=== PATIENT | female | born 1960 | race Caucasian/White ===

== ENCOUNTER 2016-07-31 14:37 | Inpatient (IN) | payer MEDICARE, MEDICAID ==
[2016-07-31] VITALS (9 sets, daily range): BP systolic 98–138; BP diastolic 60–88
[~2016-07-31] VITALS: Ht 175 cm; Wt 114.5 kg
--- NOTE | ~2016-07-31 | PR ---
[place], [place] PROGRESS NOTE NAME: [id number] UNIT #: [id number] ROOM: 522 DOCTOR: PATRICIA SOLANO MD,MARTY BIRTHDATE: [birth year] DOS: 08/06/2016 SUBJECTIVE: She had been noted to gradual continued reduction and improvement in the respiratory complaints of cough. The wheezing has been improving. Shortness of breath has been also noted gradually reduced. She denies any chest pain or any abdominal pain. OBJECTIVE: VITAL SIGNS: For the patient, which has been recorded shows a normal temperature, respiratory rate 20, heart rate 66, blood pressure 134/88 this morning. HEENT: Examination shows chronic moderate obesity. NECK: Supple. CARDIOVASCULAR: S1, S2 audible. LUNGS: Rbut-lv-dwolwpxi expiratory wheezing, which has noted further decrease from previous examination. ABDOMEN: Soft, nontender. LABORATORY DATA: BMP today: BUN 32, creatinine 1.07. Chest x-ray of the patient on 08/06/2016 for the patient was noted with resolving infiltration in the right lung. IMPRESSION: 1. Improving acute pneumonia progressively with improving acute exacerbation of chronic obstructive pulmonary disease. 2. Chronic obesity as well. PLAN OF TREATMENT: Continuation of current plan of treatment for another 24 hours. Possible home discharge might be considered on oral medication depends on further improvement in the symptoms. Other supportive therapy, plan of management continue. Usual care. MARTY GOMEZ MD CM:PNTRANS [phone] MARTY SOLANO MD 08/07/16 0059 interface
--- NOTE | ~2016-07-31 | PROC NOTE ---
[place], [place] PROCEDURE NOTE NAME: SANDRA CHRISTOPHER UNIT #: [id number] ROOM: 522 DOCTOR: PATRICIA SOLANO MD,MARTY BIRTHDATE: [birth year] DOS: 08/03/2016 BRONCHOSCOPY NOTE PREOPERATIVE DIAGNOSES: Severe nonproductive cough for this patient with wheezing and acute bacterial pneumonia. POSTOPERATIVE DIAGNOSES: Ongoing acute pneumonia was noted in the right lower lobe endobronchial tree with multiple large plugs in the mucus, cleared off endobronchial tree bilaterally. PROCEDURE DESCRIPTION: Informed consent obtained for the patient. The patient brought to the OR, placed in a supine position. Conscious sedation administered by the Anesthesia Department. After achieving appropriate sedation, airway introduced into the mouth. Bronchoscope advanced through the airway into the laryngeal area. The epiglottis and vocal cords were seen. Bronchoscope advanced to the vocal cords into tracheal lumen, which shows very thick mucus secretions present in the tracheal lumen suctioned out bhargavi level. Bhargavi was noted at that time. Right upper, right middle, right lower, left upper, lower lobe, and lingular bronchi were all examined. Thick plugs of mucus are removed from the endobronchial tree. Purulent secretion present in the right lower lobe endobronchial tree as well in the basilar subsegments. BAL specimen of the right lower lobe was also noted. Procedure well tolerated by the patient without any complications. Postoperative findings will be discussed with the patient once the patient recovered the effects of acute sedation. MARTY GOMEZ MD CM:PROCNOTE:PROCEDURE NOTE [id number] MARTY SOLANO MD
--- NOTE | ~2016-07-31 | PR ---
[place], [place] PROGRESS NOTE NAME: SANDRA CHRISTOPHER UNIT #: [id number] ROOM: 522 DOCTOR: MARTY MILLER MD BIRTHDATE: [birth year] DOS: 08/03/2016 PULMONARY PROGRESS NOTE SUBJECTIVE: She was seen and examined on 08/03/2016. She was still noted symptoms of coughing, currently noted n.p.o. for bronchoscopy. The coughing has been noted nonproductive as previously with partial improvement as the patient has been using the Robitussin with codeine. She denies symptoms of chest pain. The wheezing was still described. She was continued on high dose intravenous corticosteroids with bronchodilators administration every 4 hours. OBJECTIVE: VITAL SIGNS: For the patient which have been recorded showed the temperature of the patient recorded as normal. The respiratory rate of the patient recorded as 16, heart rate 66, blood pressure 187/81. The pulse oxygen saturation for the patient recorded on 2 L nasal cannula 97% saturation. HEENT: On examination, head was atraumatic. Eyes nonicterus. NECK: Supple. CARDIOVASCULAR SYSTEM: S1, S2 audible. LUNGS: Noted with persistent moderate expiratory wheezing. There were no crackles. ABDOMEN: Soft, nontender. LABORATORY DATA: The BMP of the patient this morning, BUN 33, creatinine 1.43. Glucose 118. Remaining electrolytes were normal. IMPRESSION: 1. The patient who has been currently noted with ongoing acute exacerbation of bronchial asthma with acute bacterial pneumonia as well. 2. Chronic anticoagulation. 3. Severe nonproductive cough with wheezing, which remains persistent not resolving with current maximum medical therapy. 4. History of hypothyroidism and chronic obesity. 5. Atrial fibrillation, currently noted with controlled rate. PLAN OF TREATMENT: Continuation of the current plan of management as in progress. Proceed with the bronchoscopy. Any modification in the treatment if necessary will be done after bronchoscopy. Continue other usual care and plan of management. [place], [place] PROGRESS NOTE NAME: SANDRA CHRISTOPHER UNIT #: [id number] ROOM: 522 DOCTOR: MARTY MILLER MD BIRTHDATE: [birth year] MARTY GOMEZ MD CM:PNTRANS [id number] MARTY SOLANO MD 08/04/16 0114 interface
--- NOTE | ~2016-07-31 | CON ---
[place], [place] REPORT OF CONSULTATION [id number] UNIT #: [id number] ROOM: [place] [address] DOCTOR: RICKY GARZA MD BIRTHDATE: [birth year] DOS: 08/01/2016 REASON FOR CONSULTATION: Atrial fibrillation with rapid ventricular response. HISTORY OF PRESENT ILLNESS: Uma Christopher is a 56-year-old woman who has a long history of hypocalcemia. This apparently began after a thyroidectomy around 2011. Apparently, her parathyroids were also sacrificed in the surgery. She has had several episodes of hypocalcemia and is on calcitriol and Tums. The patient also has a history of palpitations and rapid heartbeat. She has been followed by Dr. Duffy at the [facility] in [place]. A loop recorder was placed about 3-4 years ago and did demonstrate atrial fibrillation. She is on Eliquis for stroke prophylaxis and is on propafenone to try to suppress her atrial fibrillation. She tells me that Dr. Duffy interrogated her loop recorder recently and found that she was in atrial fibrillation just under half the time. She presents to the hospital now because of worsening dyspnea and cough. She was treated as an outpatient for bronchitis, but did not improve. Her symptoms became worse, and therefore, she came back to the Emergency Room and was admitted. She was found to be in atrial fibrillation with rapid ventricular response in addition to which her chest x-ray now showed a right lower lobe pneumonia. She was also hypocalcemic. She was admitted to the Intensive Care Unit to treat these three issues. Overnight, she was placed on a diltiazem drip and converted back to sinus rhythm. She is now in sinus at a rate of 91. PAST MEDICAL HISTORY: Includes: 1. Hypothyroidism secondary to thyroid resection in the early 1999s. 2. 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 3. Essential hypertension. 4. Asthma. 5. Paroxysmal atrial fibrillation, first documented about 3-4 years ago. The patient is anticoagulated with Eliquis for stroke prophylaxis and is on propafenone for atrial fibrillation suppression. She reports that she is in atrial fibrillation just under half the time. 6. Chronic renal insufficiency. 7. History of section. 8. History of placement of a loop recorder subcutaneously. MEDICATIONS PRIOR TO ADMISSION: Albuterol by inhaler t.i.d., Symbicort 2 puffs b.i.d., alprazolam 0.5 mg b.i.d. p.r.n., apixaban 5 mg b.i.d., calcitriol 0.25 mcg 2 capsules daily, calcium carbonate 1000 mg t.i.d., diltiazem CD 240 mg daily, hydrochlorothiazide 12.5 mg daily, levothyroxine 200 mcg daily, metoprolol 50 mg b.i.d., Singulair 10 mg daily, Mirapex 0.75 mg at bedtime, Mysoline 50 mg at bedtime, propafenone 325 mg t.i.d. and Carafate 1 gram t.i.d. ALLERGIES: The patient lists ALLERGIES TO SULFA DRUGS AND PHENOBARBITAL. REVIEW OF SYSTEMS: The patient denies diplopia, loss of vision or focal [place], [place] REPORT OF CONSULTATION NAME: UMA CHRISTOPHER UNIT #: [id number] ROOM: [place] [address] DOCTOR: RICKY GARZA MD BIRTHDATE: [birth year] weakness. She denies any history of stroke. She denies nausea or vomiting. She denies fevers, chills, sweats or recent weight change. She denies orthopnea or PND. She does have asthma. She does have cough. She is dyspneic. She denies nausea or vomiting. She denies any weight change. She does have intermittent palpitations, but no syncope. She denies focal weakness. She denies bleeding from any site and denies bleeding from bowels or bladder. She denies hemoptysis or hematemesis. She denies any abdominal pain. She denies any dysuria. She denies peripheral edema. She denies swollen legs. The remainder of the review of systems is negative except as noted above. SOCIAL HISTORY: The patient is and lives with her . She does not smoke. She does not consume alcohol. PHYSICAL EXAMINATION: GENERAL: The patient is an overweight white female who is awake, alert, and oriented. VITAL SIGNS: Pulse is 90 and regular, blood pressure is 128/70. She is afebrile. She weighs 106 kilograms with a body mass index of 34.6. HEENT: Normocephalic, atraumatic. Extraocular muscles are intact. Sclerae are clear. Pupils are equal, round, and reactive to light. The oral mucosa is moist. Tongue is midline. NECK: Supple. She has no jugular distention. Carotids are full. I heard no bruits. She had no neck or supraclavicular masses. Respirations are unlabored. CHEST: Markedly decreased breath sounds bilaterally with marked expiratory prolongation and scattered wheezes with few crackles at the right base as well. LUNGS: Respirations are somewhat labored. She does have a persistent cough. CARDIOVASCULAR: Her heart has a regular rhythm. She has a fourth heart sound, but no third heart sound or murmur. The PMI is not displaced. She has no precordial heave, lift or thrill. ABDOMEN: Soft and normally active without masses, organomegaly or bruits. EXTREMITIES: Showed no edema. Peripheral pulses are easily palpated bilaterally. LABORATORY DATA: Her electrocardiogram on admission did show atrial fibrillation with a rapid ventricular response. She is now in sinus rhythm. IMPRESSIONS: 1. Hypocalcemia due to hypoparathyroidism (iatrogenic). 2. Iatrogenic hypothyroidism after thyroidectomy. 3. Paroxysmal atrial fibrillation documented about 3-4 years ago. The patient is on propafenone with only partial success. 4. Pneumonia. PLAN: As long as the patient is being treated for pneumonia, it is likely that she will have problems with recurrent atrial fibrillation. The work of breathing, bronchodilators, etc. are very likely to make her arrhythmias worse. For now, we will continue her Eliquis for stroke prophylaxis and propafenone for rhythm control. In the future, she may be a candidate for other antiarrhythmic medications or possibly even ablation, but I will leave that to her primary [place], [place] REPORT OF CONSULTATION NAME: UMA CHRISTOPHER UNIT #: [id number] ROOM: [place] [address] DOCTOR: RICKY GARZA MD BIRTHDATE: 62 accounting specialist, Dr. Duffy, at the [facility]. We will follow her with her other physicians and we thank the hospitalist for asking our advice regarding her care. RICKY GARZA MD CM:CONSTR:REPORT OF CONSULTATION 1625 08/02/16 0826 interface
--- NOTE | ~2016-07-31 | PR ---
[place], [place] PROGRESS NOTE NAME: SANDRA CHRISTOPHER UNIT #: [id number] ROOM: 522 DOCTOR: MARTY MILLER MD BIRTHDATE: [birth year] DOS: 08/05/2016 PULMONARY FOLLOWUP NOTE SUBJECTIVE: She has been noted reduction in symptoms of cough and shortness of breath. The patient's symptoms have been noted gradual reduction. Denies symptoms of chest pain or any abdominal pain. The patient has been also noted with reduction of the overall generalized debility. OBJECTIVE: VITAL SIGNS: Showed normal temperature, respiratory rate 20, heart rate 66, blood pressure 138/92. Pulse oxygen saturation of the patient on ____ 1.5 L nasal cannula ____ saturation. HEENT: Showed no acute change. NECK: Supple. CARDIOVASCULAR: S1, S2 is audible. LUNGS: The patient was noted without any crackles. Moderate decreased breath sounds with reduction of wheezing noted, still noted mild to moderately. ABDOMEN: Soft, nontender. Bowel sounds present. LABORATORY DATA: Culture of bronchial washings showed normal amos. The renal function panel BUN 33, creatinine 1.28. Remaining electrolytes were normal. IMPRESSION: 1. The patient with gradual reduction and resolution of the acute respiratory failure with resolving acute bacterial pneumonia, slowly. 2. Overall debility. 3. Muscle deconditioning. PLAN OF TREATMENT: Obtain a chest x-ray of the patient in the morning. The patient might be considered for treatment with intravenous antibiotics and corticosteroids. The patient for home discharge in the morning. In the meantime, continue the patient on current other therapy plan and management. Supportive plan of care. Obtain the chest x-ray of the patient in the morning as well for the assessment of the pneumonia progression. Other treatment plan for this patient as in progress. Reduce the dose of Solu-Medrol for the patient to b.i.d. dosing. [place], [place] PROGRESS NOTE NAME: SANDRA CHRISTOPHER UNIT #: [id number] ROOM: 522 DOCTOR: MARTY MILLER MD BIRTHDATE: [birth year] MARTY GOMEZ MD CM:PNTRANS [id number] MARTY SOLANO MD 08/06/16 0414 interface
--- NOTE | ~2016-07-31 | CON ---
[place], [place] REPORT OF CONSULTATION NAME: SANDRA CHRISTOPHER [facility] #: [id number] UNIT #: [id number] ROOM: 522 DOCTOR: MARTY MILLER MD BIRTHDATE: [birth year] DOS: 08/02/2016 PULMONARY CONSULTATION EVALUATION MANAGEMENT CONSULTATION REQUESTED BY: Hospitalist services. REASON FOR CONSULTATION: Assess the patient for ongoing acute pneumonia with severe cough and other symptoms. HISTORY OF PRESENT ILLNESS: A 56-year-old white female known to me from the past. The patient has not been seen in the office on a regular basis, but seen in the hospital previously. She presented to the hospital as the patient developed increased symptoms of coughing, chest congestion few days prior to admission to the hospital. The cough had been described to be quite severe and remains nonproductive. The cough has been also interfering with activity of daily living as well as occurring at night with difficulty sleeping. The patient denies any symptoms of chest pain. She does have symptoms of wheezing, which has been noted progressively worse since hospitalization, shortness of breath was also noted with mild exertion activities. She denies symptoms of hemoptysis. She was also noted with atrial fibrillation with intermittent rapid ventricular response. Remaining review of systems of the patient is as follows: CONSTITUTIONAL: Fatigue and tiredness noted without any fever or chills. EYES: Denies any burning, redness, or tenderness. EARS, NOSE, THROAT SYMPTOMS: No sore throat, hoarseness, or otalgia. CARDIOVASCULAR: Denies anginal pain, edema, or pain of the lower extremities at this time. GASTROINTESTINAL: Denies symptoms of ongoing nausea, vomiting, diarrhea, abdominal pain, hematemesis, melena, hematochezia, abnormal weight loss, or dysphagia. GENITOURINARY: Denies dysuria, suprapubic pain, or hematuria. MUSCULOSKELETAL: Denies acute joint pain, redness, or tenderness. SKIN: No lesions or rashes. CENTRAL NERVOUS SYSTEM: Denies dizziness, headache, diplopia, syncopal episodes or seizures. Remaining systems were reviewed and they were noted all negative. PAST MEDICAL HISTORY: 1. Bronchial asthma, most likely moderate uncomplicated persistent asthma, but the patient has not had any pulmonary function testing done to make the correlation. 2. Essential hypertension. 3. Gastroesophageal reflux. 4. Osteoarthritis. 5. Hypothyroidism. 6. Atrial fibrillation intermittently. 7. History of neurotic depression and general anxiety disorder. 8. Chronic obesity. 9. Hypoparathyroidism. 10. Restless leg syndrome. [place], [place] REPORT OF CONSULTATION NAME: SANDRA CHRISTOPHER UNIT #: [id number] ROOM: 522 DOCTOR: MARTY MILLER MD BIRTHDATE: [birth year] 11. Chronic kidney disease, stage 3. PAST SURGICAL HISTORY: 1. Removal of the thyroid and parathyroid gland. 2. Surgery of the foot. 3. . 4. Fiberoptic bronchoscopy that was done in 03/2016. SOCIAL HISTORY: The patient is , has 1 daughter. She was noted as lifetime nonsmoker. There is no history of alcohol use, illicit drug use or occupation related pulmonary exposure history. FAMILY HISTORY: Noted noncontributory. MEDICATIONS: The patients current administered medications noted use of levothyroxine, Mirapex, primidone, Singulair, diltiazem, propafenone, Carafate, Dulera, hydrochlorothiazide, calcitriol, metoprolol tartrate, calcium carbonate, use of Eliquis, Protonix, IV Solu-Medrol 60 mg q.8 hours, Mucinex 1200 mg b.i.d., DuoNeb, Levaquin, and other p.r.n. medications administration. ALLERGIES: The drug allergy history of the patient was noted as allergies to: 1. SULFA DRUGS. 2. PHENOBARBITAL. PHYSICAL EXAMINATION: GENERAL: This is a 56-year-old female who has been noted currently awake and alert without any distress. VITAL SIGNS: Height of 5 feet 9 inches, weight of 233 pounds, BMI 34.6. Vital signs, which have been recorded in the last 24 hours showed the temperature of the patient noted as normal temperature, it was noted previously on 07/31/2016 as 100.5 degree Fahrenheit, respiratory rate 16-22, heart rate 79-136 noted previously with atrial fibrillation. The blood pressure ranges between 148/80-128/69. The pulse oxygen saturation of the patient was recorded on 3 liters nasal cannula 95% saturation, on room air 99% saturation noted on admission. HEENT: Head was atraumatic. Eyes nonicterus. NECK: Supple. Decreased posterior pharyngeal space. CARDIOVASCULAR: S1, S2 is audible. LUNGS: The patient noted with general reduction in breath sounds with very diffuse expiratory wheezing. There were no crackles heard. ABDOMEN: Soft, obese, nontender, bowel sounds present. CENTRAL NERVOUS SYSTEM: Cranial nerves 2-12 intact. No focal deficits. SKIN: No lesions or rashes. MUSCULOSKELETAL: No deformities. LABORATORY DATA: CBC of 07/31/2016, WBC count 11.3, remaining CBC was normal. PT/PTT on was normal. The PTH was noted elevated at 72.8 with vitamin D level noted as low as 24.5. The lactic acid 2.4, followup lactic acid 1.1. Arterial blood gas on 3 liters, pH of 7.46, pCO2 of 26, pO2 of 75 on 07/31/2016 on admission as well. CPK-MB and troponin for the patient noted as [place], [place] REPORT OF CONSULTATION NAME: SANDRA CHRISTOPHER UNIT #: [id number] ROOM: 522 DO[facility] [birth year] CPK mildly elevated at 227, normal MB and troponin. Influenza A and B, nasal washing antigens were normal. CBC repeated on 08/01/2016 was still normal. The repeat CK-MB for the patient on 08/01/2016, CPK 211, normal CK-MB and troponin. The PT, PTT yesterday noted were normal. Arterial blood gas repeated again pH of 7.47, pCO2 of 22, pO2 of 130.8 yesterday as well. The renal function panel that was done this morning, glucose 134, BUN 25, creatinine 1.31, calcium 7.6 without any correction by the albumin. The chest x-ray of the patient which was done initially on admission shows questionable infiltration in the right lower lobe. The chest x-ray that was done yesterday, 1-view was noted interval development of moderate sized infiltration in the right infrahilar area. IMPRESSION: 1. The patient who has been currently admitted to the hospital noted with ongoing severe acute exacerbation of bronchial asthma associated with acute bacterial pneumonia for this patient with atypical etiology to be considered in the right lower lobe. 2. Persistent severe nonproductive cough as well as obesity. 3. Chronic anticoagulation. 4. Atrial fibrillation with rapid ventricular response noted on admission, currently noted in controlled range. 5. Chronic obesity. 6. History of hypothyroidism and other medical problems including chronic hypocalcemia. PLAN OF TREATMENT: The patient will benefit from fiberoptic bronchoscopy to assess severe coughing for this patient with suspected mucus impaction of major airways since the patient has not been noted much improvement in symptoms with current aggressive therapy, use of corticosteroids, bronchodilators, and other treatments. The Eliquis needs to be held for this patient at night, the evening dose of patient to prevent any bleeding with the bronchoscopy. Continue in the meantime, other previous treatment plan and management as in progress. Risks and benefits of procedure have been discussed with the patient. For the symptomatic management for severe cough for the patient, she had been ordered Robitussin-AC q.6 hours. The medication will be made p.r.n. after the improvement noted in the cough in general in the near future. Continue other previous treatment plan of management, usual care, all other supportive care and therapies. Usual care. Thank you for allowing me to participate in the care of this patient. [place], [place] REPORT OF CONSULTATION NAME: SANDRA CHRISTOPHER UNIT #: [id number] ROOM: 522 DOCTOR: MARTY MILLER MD BIRTHDATE: [birth year] MARTY GOMEZ MD CM:CONSTR:REPORT OF CONSULTATION 1320 08/03/16 0257 interface
--- NOTE | ~2016-07-31 | PR ---
[place], [place] PROGRESS NOTE NAME: SANDRA CHRISTOPHER UNIT #: [id number] ROOM: 522 DOCTOR: MARTY MILLER MD BIRTHDATE: [birth year] DOS: 08/07/2016 PULMONARY FOLLOWUP SUBJECTIVE: The patient was seen and examined on 08/07/2016. She has been noted comfortable at this time without any distress. Her coughing continued to improve progressively with reduction of wheezing and shortness of breath. Denies symptoms of chest pain or any abdominal pain. OBJECTIVE: VITAL SIGNS: Normal temperature, respiratory rate 18, heart rate 73, blood pressure 140/90. Pulse oxygen saturation on room air 95% saturation. HEENT: No new change. NECK: Supple and obese. CARDIOVASCULAR: S1, S2 audible. LUNGS: Noted with moderate decreased breath sounds, mild expiratory wheezing. Good air entry otherwise noted. ABDOMEN: Soft, nontender. LABORATORY DATA: CBC: WBC count 13,000, hemoglobin and hematocrit normal, platelet count was normal. BMP of the patient noted as BUN 20, creatinine was normal. IMPRESSION: 1. The patient with progressive resolution of the acute pneumonia radiologically and clinically with improving acute exacerbation of chronic obstructive pulmonary disease as well with continued resolution and improvement in symptoms of cough, wheezing and shortness of breath. 2. Chronic obesity. PLAN OF TREATMENT: The patient could be considered for discharge home at the present time as planned for today on oral antibiotic, tapering prednisone. She will not require any intravenous therapy at this time. She was asked about resuming her previous medications for the medical management of chronic obstructive pulmonary disease as well as and outpatient followup will be established in the office for this patient for further continued care, pulmonary problems. [place], [place] PROGRESS NOTE NAME: SANDRA CHRISTOPHER UNIT #: [id number] ROOM: 522 DOCTOR: MARTY MILLER MD BIRTHDATE: [birth year] MARTY GOMEZ MD CM:PNTRANS [phone] MARTY SOLANO MD 08/08/16 0119 interface
--- NOTE | ~2016-07-31 | PR ---
[place], [place] PROGRESS NOTE NAME: SANDRA CHRISTOPHER UNIT #: [id number] ROOM: 522 DOCTOR: MARTY MILLER MD BIRTHDATE: [birth year] DOS: 08/04/2016 PULMONARY FOLLOWUP NOTE SUBJECTIVE: The patient has been noted comfortable at this time without any distress. She has been still noted with coughing and wheezing, but the symptoms has been decreased after bronchoscopy that was completed yesterday. There were no symptoms of chest pain or any abdominal pain. OBJECTIVE: VITAL SIGNS: Shows normal temperature, respiratory rate 20, heart rate 69, blood pressure 122/78. Pulse oxygen saturation on 2 L nasal cannula 98% saturation recorded. HEENT: Examination shows head was atraumatic, chronic obesity. CARDIOVASCULAR SYSTEM: S1, S2 audible. LUNGS: Shows no crackles. Breaths are noted mildly decreased with mild to moderate expiratory wheezing with improvement in air entry. ABDOMEN: Soft, nontender. LABORATORY DATA: The culture of the bronchial washings were noted with normal amos. CBC of the patient shows hemoglobin 11.9, hematocrit 35.3, WBC count and platelet count were normal. Blood culture showed no bacterial growth for the patient on 17th of this month. The BMP of the patient today, BUN 35, creatinine 1.26, glucose 115. IMPRESSION: 1. The patient with acute bacterial pneumonia of the patient in the right lower lobe with acute tracheobronchitis as well exacerbation of chronic obstructive pulmonary disease, status post bronchoscopy. 2. Chronic obesity as well. PLAN OF TREATMENT: Continuation of the oxygen supplementation. Continue bronchodilators, corticosteroids, monitoring respiratory status and the cultures. The patient still noted acutely ill and will not be able to be discharged home today. She will require a little bit prolonged treatment for this patient possibility with corticosteroids and antibiotic combination. Chest x-ray monitoring to be done intermittently. Usual care in the meantime to be continued. Urine for Legionella antigen was also noted negative for this patient on this admission. [place], [place] PROGRESS NOTE NAME: SNADRA CHRISTOPHER UNIT #: [id number] ROOM: 522 DOCTOR: MARTY MILLER MD BIRTHDATE: [birth year] MARTY GOMEZ MD CM:PNKUMAR [id number] MARTY SOLANO MD 08/05/16 0415 interface
--- NOTE | ~2016-07-31 | PR ---
[place], [place] PROGRESS NOTE NAME: SANDRA CHRISTOPHER UNIT #: [id number] ROOM: 522 DOCTOR: RICKY GARZA MD BIRTHDATE: [birth year] DOS: 08/02/2016 SUBJECTIVE: The patient was seen at her bedside in the intensive care unit today, 08/02/2016, for followup of her paroxysmal atrial fibrillation in the setting of recurrent bronchitis. She does have a history of iatrogenic hypothyroidism and hypoparathyroidism with chronic hypocalcemia. She also has paroxysmal atrial fibrillation, which has been documented by a loop recorder for the last 3-4 years. She came into the hospital with bronchitis and atrial fibrillation. She has converted spontaneously to sinus rhythm, but she still is being treated for right lower lobe pneumonia. PHYSICAL EXAMINATION: VITAL SIGNS: Today, her pulse is 78 and regular, blood pressure is 144/87. She is afebrile. NECK: Supple. She has no jugular distention. Carotids are full. LUNGS: Respirations are unlabored, and she is coughing almost continuously as examined her. Her lungs are very tight with decreased breath sounds bilaterally, expiratory prolongation with scattered wheezes. HEART: Regular rhythm with a fourth heart sound, but no third heart sound or murmur. ABDOMEN: Benign. EXTREMITIES: Showed no edema. LABORATORY DATA: On the monitor, she remains in sinus rhythm with a controlled ventricular response. IMPRESSION: 1. Paroxysmal atrial fibrillation, which has been documented for about 3 or 4 years. The patient is on propafenone with only partial success in suppressing her atrial fibrillation. 2. Iatrogenic hypothyroidism and hypoparathyroidism. 3. Hypocalcemia due to hypoparathyroidism. 4. Pneumonia. PLAN: We will continue her current dose of propafenone. This is the maximum recommended dose for atrial fibrillation. She will remain on Eliquis for stroke prophylaxis. She will follow her with her other physicians while she is in the hospital. Eventually, she will return to her technical assoc at the [facility] for further management of her atrial fibrillation. We thank the hospitalist service for asking our advice regarding her care. [place], [place] PROGRESS NOTE NAME: SANDRA CHRISTOPHER UNIT #: [id number] ROOM: 522 DOCTOR: RICKY GARZA MDTE: [birth year] RICKY GARZA MD CM:PNTRANS [id number] RICKY GARZA MD 08/03/16 0116 interface
[~2016-07-31 14:37] MED LIST: ALBUTEROL0.09 MG/A1 IH; AMBIEN10 M1 PO; AMOXICILLIN500 MG PO; ANTIVERT/2525 MG PO; ASPIRIN325 MG PO; ATENOLOL50 MG PO; ATHLETE'S FOOT15 GM T; BENZONATATE100 M1 PO; BIAXIN500 MG PO; CALAN,ISOPTIN80 MG PO; CALCIUM 1,0001 EACH PO; CARDIZEM CD240 M1 PO; CARDIZEM LA180 MG PO; CARDIZEM90 MG PO; CELEXA10 MG PO; CELEXA20 MG PO; CLARITIN10 MG PO; CORDROL20 MG PO; COREG12.5 MG PO; COUMADIN7.5 M1 PO; CYCLOBENZAPRINE10 MG PO; CYMBALTA60 MG PO; Carafate1 GM PO; EC NAPROSYN500 MG PO; EES400 MG PO; ELIQUIS5 M1 PO; FLEXERIL10 MG PO; FLEXERIL5 MG PO; FLOVENT DI100 MCG/Ac INH; HYDRALAZINE HCL PO; HYDROCODONE BIT1 T11 PO; HYGROTON25 MG PO; LEVOFLOXACIN500 MG PO; LIDEX 0.05% CRE15 GM T; LISINOPRIL10 M1 PO; LISINOPRIL10 MG PO; LISINOPRIL20 MG PO; LUNESTA1 MG PO; MECLIZINE HCL25 M1 PO; MEDROL DOSEPAK4 MG PO; METOPROLOL TART50 M1 PO; MIRAPEX0.5 MG PO; MIRAPEX1 MG PO; MOTRIN800 MG PO; MUCINEX ER600 MG PO; NEURONTIN600 MG PO; NORCO 325 MG-51 TAB PO; OSCAL/D,OYSTER250 MG PO; PREDNICOT10 MG PO; PREDNISONE10 MG PO; PREVACID SOLUTA30 MG PO; PRILOSEC20 M1 PO; PROAMATINE10 MG PO; PROPAFENONE HC325 MG PO; ROBITUSSIN AC 110 ML PO; ROCALTROL0.25 MC2 PO; Rocaltrol0.25 MCG PO; SINGULAIR10 MG PO; STIOLTO RESPIMAT4 GM INH; STROMECTOL3 MG PO; SYMBICORT1 AE1 INH; SYNTHROID,LEV175 MCG PO; TOBRADEX 0.1%-0.5 ML OPH; TRAMADOL HCL50 MG PO; TRAZODONE50 MG PO; TRIMOX500 MG PO; VIBRAMYCIN100 MG PO; VOLTAREN50 M1 PO; WELLBUTRIN SR150 MG PO; XANAX0.5 MG PO; ZANTAC 150150 MG PO; ZITHROMAX Z PA250 MG PO; ZOFRAN ODT4 MG SL; ZOFRAN4 MG PO
[2016-07-31 15:17] LABS: BASO # 0.1 10*3/uL (0.0-0.1); BASO % 0.5 % (0.0-1.0); EOS # 0.1 10*3/uL (0.0-0.4); EOS % 0.9 % (1.0-4.0); HEMATOCRIT 42.6 % (37.0-47.0); HEMOGLOBIN 14.5 g/dl (12.0-16.0); LYMPH # 1.5 10*3/uL (1.3-4.4); LYMPH % 13.3 % (27.0-41.0); MEAN CELL VOLUME 88.6 fl (81.0-99.0); MEAN CORPUSCULAR HGB 30.1 pg (27.0-31.0); MONO # 1.2 10*3/uL (0.1-1.0); MONO % 10.3 % (3.0-9.0); NEUT # 8.4 10*3/uL (2.3-7.9); NEUT % 74.7 % (47.0-73.0); PLATELET COUNT AUTOMATED 283 10*3/uL (130-400); RED BLOOD COUNT 4.81 10*6/uL (4.10-5.10); RED CELL DISTRI WIDTH 12.2 % (0-14.5); WHITE BLOOD COUNT 11.3 10*3/uL (4.8-10.8)
[2016-07-31 15:29] LABS: PROTHROMBIN TIME 10.7 SECONDS (9.0-12.4)
[2016-07-31 15:35] LABS: ALBUMIN 3.5 gm/dl (3.1-4.5); ALKALINE PHOSPHATASE 75 U/L (45-117); BILIRUBIN, TOTAL 0.7 mg/dl (0.2-1.0); BUN 15 mg/dl (7-24); CARBON DIOXIDE 22 mmol/L (21-32); CHLORIDE 101 mmol/L (98-107); EST GLOM FILT AFRICAN AMERICAN 44 ml/min; GLUCOSE 87 mg/dL (65-99); MAGNESIUM 2.1 mg/dL (1.5-2.1); POTASSIUM 3.5 mmol/L (3.5-5.1); SGOT/AST 16 IU/L (3-35); SGPT/ALT 17 U/L (12-78); SODIUM 140 mmol/L (136-145); TOTAL PROTEIN 7.6 gm/dL (6.4-8.2)
[2016-07-31 15:36] LABS: TROPONIN I < 0.015 ng/ml (<0.5)
[2016-07-31] MEDS ORDERED: HYDROCHLOROTH12.5 M3 PO (15:45)
[2016-07-31 15:57] LABS: ABG BASE EXCESS -3.2 mmol/L (-2.0-2.0); ABG CO2 CONTENT 19.6 mmol/L (23-27); ABG HCO3 18.8 mmol/l (22-26); ABG TEMPERATURE 97.7 F (98.0-99.0); ARTERIAL BLOOD GAS PH 7.464 (7.35-7.45); ARTERIAL BLOOD GAS PO2 75.4 mmHg (80-90)
[2016-07-31 17:15] LABS: LA>2 REFLEX 2 HR DRAW NOW
[2016-07-31] MEDS ORDERED: SYMBICORT1 AE1 INH (18:12)
[2016-07-31] MEDS ORDERED: ALBUTEROL 3 ML 33 ML INH (18:16)
[2016-07-31] MEDS ORDERED: MYSOLINE50 M2 PO (18:17)
[2016-07-31 19:04] LABS: LA>2 RFLX FOLLOW UP AT 2 HRS 2.8 mmol/L (0.4-2.0)
[2016-07-31 19:44] LABS: CPK 227 U/L (26-192)
[2016-07-31 19:45] LABS: TROPONIN I < 0.015 ng/ml (<0.5)
[2016-07-31 20:49] LABS: LA>2 REFLEX 4 HR DRAW NOW
[2016-07-31 21:12] LABS: BILIRUBIN 1+ (NEGATIVE); BLOOD 3+ (NEGATIVE); CLARITY CLEAR (CLEAR); COLOR YELLOW (YELLOW); GLUCOSE NEGATIVE (NEGATIVE); KETONE 3+ (NEGATIVE); LEUKO ESTERASE NEGATIVE (NEGATIVE); NITRITE NEGATIVE (NEGATIVE); PH 5.5 (5.0-9.0); PROTEIN 1+ (NEGATIVE); UROBILINOGEN 0.2 E.U./dl (0.2-1.0)
[2016-07-31 21:22] LABS: BACTERIA 1+; RBC 31-40 rbc/hpf (0-2)
[2016-07-31 21:23] LABS: URINE REFLEX COMMENT YES (NO)
[2016-08-01] VITALS: BP 152/81
[2016-08-01 00:50] LABS: CKMB 1.1 ng/ml (0.5-3.6); CPK 188 U/L (26-192)
[2016-08-01 00:51] LABS: TROPONIN I < 0.015 ng/ml (<0.5)
[2016-08-01 04:00] VITALS: BP 137/75
[2016-08-01 06:03] LABS: LYMPH # 0.5 10*3/uL (1.3-4.4); LYMPH % 6.5 % (27.0-41.0); MEAN CELL VOLUME 88.6 fl (81.0-99.0); MEAN CORPUSCULAR HGB 30.1 pg (27.0-31.0); MEAN PLATELET VOLUME 10.2 fl (9.6-12.3); MONO # 0.2 10*3/uL (0.1-1.0); MONO % 3.2 % (3.0-9.0); NEUT # 6.2 10*3/uL (2.3-7.9); NEUT % 89.9 % (47.0-73.0); PLATELET COUNT AUTOMATED 244 10*3/uL (130-400); RED BLOOD COUNT 4.02 10*6/uL (4.10-5.10); WHITE BLOOD COUNT 6.9 10*3/uL (4.8-10.8)
[2016-08-01 06:05] LABS: HEMATOCRIT 35.6 % (37.0-47.0); HEMOGLOBIN 12.1 g/dl (12.0-16.0)
[2016-08-01 06:25] LABS: CKMB 1.9 ng/ml (0.5-3.6); CPK 211 U/L (26-192)
[2016-08-01 06:32] LABS: TROPONIN I < 0.015 ng/ml (<0.5)
[2016-08-01 06:36] LABS: BUN 16 mg/dl (7-24); CARBON DIOXIDE 19 mmol/L (21-32); CHLORIDE 104 mmol/L (98-107); CHOLESTEROL 154 mg/dL (<200); EST GLOM FILT AFRICAN AMERICAN > 60 ml/min; FREE T4 0.99 ng/dl (0.76-1.46); GLUCOSE 157 mg/dL (65-99); HDL CHOLESTEROL 67 mg/dl (40-60); LDL CHOLESTEROL 73 mg/dL (9-159); MAGNESIUM 1.8 mg/dL (1.5-2.1); POTASSIUM 3.2 mmol/L (3.5-5.1); SODIUM 139 mmol/L (136-145); TRIGLYCERIDES 68 mg/dl (<150); VLDL CHOLESTEROL 14 mg/dL (6-40)
[2016-08-01 06:48] LABS: PROTHROMBIN TIME 10.8 SECONDS (9.0-12.4)
[2016-08-01 08:00] VITALS: BP 160/80
[2016-08-01] MEDS ORDERED: MIRAPEX0.75 MG PO (08:26)
[2016-08-01] MEDS ORDERED: LEVOTHYROXINE0.2 M2 PO (08:28)
[2016-08-01 08:47] LABS: ABG CO2 CONTENT 16.5 mmol/L (23-27); ABG HCO3 15.8 mmol/l (22-26); ABG TEMPERATURE 99.5 F (98.0-99.0); ARTERIAL BLOOD GAS PH 7.471 (7.35-7.45)
[2016-08-01 08:48] LABS: ABG BASE EXCESS -5.8 mmol/L (-2.0-2.0)
[2016-08-01 09:57] LABS: VITAMIN D, 25-HYDROXY 10.1 ng/mL (30-100)
[2016-08-01 09:58] LABS: FOLIC ACID 11.15 ng/mL (>5.38)
[2016-08-01 12:00] VITALS: BP 130/75
[2016-08-01 12:04] LABS: POTASSIUM 3.4 mmol/L (3.5-5.1)
[2016-08-01 16:00] VITALS: BP 128/71
[2016-08-01 20:00] VITALS: BP 128/69
[2016-08-02] VITALS: BP 135/94
[2016-08-02 04:00] VITALS: BP 148/80
[2016-08-02 06:01] LABS: ALBUMIN 3.4 gm/dl (3.1-4.5); MAGNESIUM 2.6 mg/dL (1.5-2.1); POTASSIUM 3.8 mmol/L (3.5-5.1)
[2016-08-02 08:00] VITALS: BP 144/87
[2016-08-02 12:00] VITALS: BP 140/74
[2016-08-02 16:00] VITALS: BP 124/86
[2016-08-02 20:00] VITALS: BP 112/73
[2016-08-03] VITALS (7 sets, daily range): BP systolic 107–135; BP diastolic 76–87
[2016-08-03 07:10] LABS: POTASSIUM 3.7 mmol/L (3.5-5.1)
[2016-08-03 16:09] LABS: LEGIONELLA URINARY ANTIGEN Negative (Negative); ORGANISM ID Not indicated. (.); SPECIMEN SOURCE Urine (.); STREPTOCOCCUS PNEUMONIAE AG Negative (Negative)
[2016-08-04] VITALS: BP 121/83
[2016-08-04 06:45] LABS: HEMATOCRIT 35.3 % (37.0-47.0); HEMOGLOBIN 11.8 g/dl (12.0-16.0); MEAN CELL VOLUME 89.6 fl (81.0-99.0); MEAN CORPUSCULAR HGB 29.9 pg (27.0-31.0); MEAN CORPUSCULAR HGB CONC 33.4 g/dl (33.0-37.0); MEAN PLATELET VOLUME 9.7 fl (9.6-12.3); PLATELET COUNT AUTOMATED 329 10*3/uL (130-400); RED BLOOD COUNT 3.94 10*6/uL (4.10-5.10); RED CELL DISTRI WIDTH 12.2 % (0-14.5); WHITE BLOOD COUNT 8.2 10*3/uL (4.8-10.8)
[2016-08-04 06:58] LABS: ALBUMIN 3.1 gm/dl (3.1-4.5); PHOSPHOROUS 3.9 mg/dL (2.5-4.9); POTASSIUM 3.7 mmol/L (3.5-5.1)
[2016-08-04 07:28] LABS: LYMPHOCYTE # 0.5 10*3/uL (1.3-4.4); METAMYELOCYTES 2 % (0-0); MONOCYTE # 0.7 10*3/uL (0.1-1.0); NEUTROPHIL # 6.8 10*3/uL (2.3-7.9); NEUTROPHILS 83 % (47-73); PLATELET SUFFICIENCY NORMAL (NORMAL); TOTAL CELLS COUNTED 100 #CELLS
[2016-08-04 08:00] VITALS: BP 117/80
[2016-08-04 12:00] VITALS: BP 122/78
[2016-08-04 16:00] VITALS: BP 122/78
[2016-08-04 16:07] LABS: ACID FAST SPEC PROCESSING Concentration (.)
[2016-08-04 20:00] VITALS: BP 136/83
[2016-08-05] VITALS: BP 128/70
[2016-08-05 06:37] LABS: ALBUMIN 3.2 gm/dl (3.1-4.5); PHOSPHOROUS 3.4 mg/dL (2.5-4.9); POTASSIUM 3.7 mmol/L (3.5-5.1)
[2016-08-05 08:00] VITALS: BP 138/92
[2016-08-05 12:00] VITALS: BP 160/80; BP 164/106
[2016-08-05 16:00] VITALS: BP 131/88
[2016-08-05 20:00] VITALS: BP 167/99
[2016-08-06] VITALS: BP 142/90
[2016-08-06 07:07] LABS: BUN 32 mg/dl (7-24); CARBON DIOXIDE 25 mmol/L (21-32); CHLORIDE 106 mmol/L (98-107); EST GLOM FILT AFRICAN AMERICAN > 60 ml/min; GLUCOSE 110 mg/dL (65-99); PHOSPHOROUS 3.4 mg/dL (2.5-4.9); POTASSIUM 4.3 mmol/L (3.5-5.1); SODIUM 140 mmol/L (136-145)
[2016-08-06 08:00] VITALS: BP 134/88
[2016-08-06 12:00] VITALS: BP 150/98
[2016-08-06 16:00] VITALS: BP 135/82
[2016-08-06 20:00] VITALS: BP 144/90
[2016-08-07] VITALS: BP 146/94
[2016-08-07 06:24] LABS: HEMATOCRIT 35.9 % (37.0-47.0); HEMOGLOBIN 12.2 g/dl (12.0-16.0); MEAN CELL VOLUME 88.9 fl (81.0-99.0); MEAN CORPUSCULAR HGB 30.2 pg (27.0-31.0); MEAN PLATELET VOLUME 9.4 fl (9.6-12.3); PLATELET COUNT AUTOMATED 381 10*3/uL (130-400); RED BLOOD COUNT 4.04 10*6/uL (4.10-5.10); RED CELL DISTRI WIDTH 12.2 % (0-14.5); WHITE BLOOD COUNT 13.8 10*3/uL (4.8-10.8)
[2016-08-07 06:38] LABS: BUN 28 mg/dl (7-24); CARBON DIOXIDE 27 mmol/L (21-32); CHLORIDE 103 mmol/L (98-107); EST GLOM FILT AFRICAN AMERICAN > 60 ml/min; GLUCOSE 107 mg/dL (65-99); POTASSIUM 4.3 mmol/L (3.5-5.1); SODIUM 142 mmol/L (136-145)
[2016-08-07 07:29] LABS: LYMPHOCYTE # 0.7 10*3/uL (1.3-4.4); METAMYELOCYTES 4 % (0-0); MONOCYTE # 0.3 10*3/uL (0.1-1.0); NEUTROPHIL # 12.3 10*3/uL (2.3-7.9); NEUTROPHILS 89 % (47-73); PLATELET SUFFICIENCY NORMAL (NORMAL); TOTAL CELLS COUNTED 100 #CELLS
[2016-08-07 08:00] VITALS: BP 159/105
[2016-08-07 08:15] VITALS: BP 140/90
[2016-08-07 12:00] VITALS: BP 131/96
[2016-08-07] MEDS ORDERED: MELOXICAM7.5 MG PO (13:56)
[2016-08-07 14:19] LABS: BILIRUBIN NEGATIVE (NEGATIVE); BLOOD 3+ (NEGATIVE); CLARITY SL CLOUDY (CLEAR); COLOR YELLOW (YELLOW); GLUCOSE 1+ (NEGATIVE); KETONE NEGATIVE (NEGATIVE); LEUKO ESTERASE NEGATIVE (NEGATIVE); NITRITE NEGATIVE (NEGATIVE); PROTEIN TRACE (NEGATIVE); SPECIFIC GRAVITY 1.025 (1.005-1.030); UROBILINOGEN 0.2 E.U./dl (0.2-1.0)
[2016-08-07 14:30] LABS: MUCOUS 1+; RBC TNTC rbc/hpf (0-2); URINE REFLEX COMMENT YES (NO)
[2016-08-07 16:00] VITALS: BP 114/65
[2016-08-07] MEDS ORDERED: LEVAQUIN750 M1 PO (16:18)
[2016-08-07] MEDS ORDERED: PREDNISONE10 MG PO (16:18)
[2016-08-16] MEDS ORDERED: PROAIR HFA8.5 GM INH (15:58)
[2016-08-16] MEDS ORDERED: ROCALTROL0.25 MC2 PO (16:01)
[2016-08-16] MEDS ORDERED: MIRAPEX0.5 MG PO (16:01)
[2016-08-16] MEDS ORDERED: OYSTER SHELL CA1 T23 PO (16:03)
[2016-08-16] MEDS ORDERED: CELEXA10 MG PO (16:04)
[2016-08-20] MEDS ORDERED: OYSTER SHELL CA1 T23 PO (08:47)
[2016-08-20] MEDS ORDERED: Rocaltrol0.25 MCG PO (08:47)
[2016-08-20] MEDS ORDERED: PREDNISONE10 MG PO (08:47)
[2016-08-20] MEDS ORDERED: DOXYCYCLINE100 M3 PO (08:47)
== END 2016-08-07 18:28 | disposition home or self-care (01) | DRG 871 ==
LOC: ED 14:37 → ICCU 15:52 → EDHOLD 15:52 → 5E 15:52 → ICCU 16:19 → 5E 08-02 14:12
PROVIDERS: Emergency Medicine; Family Medicine; Internal Medicine; Internal Medicine Critical Care Medicine; Internal Medicine Nephrology; Student in an Organized Health Care Education/Training Program
DX: A41.9 Sepsis, unspecified organism (principal); N17.0 Acute kidney failure with tubular necrosis; J96.00 Acute respiratory failure, unspecified whether with hypoxia or hypercapnia; E87.3 Alkalosis; J15.9 Unspecified bacterial pneumonia; J44.1 Chronic obstructive pulmonary disease with (acute) exacerbation; D68.59 Other primary thrombophilia; I13.10 Hypertensive heart and chronic kidney disease without heart failure, with stage 1 through stage 4 chronic kidney disease, or unspecified chronic kidney disease; J45.901 Unspecified asthma with (acute) exacerbation; R65.20 Severe sepsis without septic shock; N18.3 Chronic kidney disease, stage 3 (moderate); K21.9 Gastro-esophageal reflux disease without esophagitis; M19.90 Unspecified osteoarthritis, unspecified site; E89.0 Postprocedural hypothyroidism; F32.9 Major depressive disorder, single episode, unspecified; E87.6 Hypokalemia; F41.9 Anxiety disorder, unspecified; E66.9 Obesity, unspecified; J20.9 Acute bronchitis, unspecified; E20.9 Hypoparathyroidism, unspecified; I48.0 Paroxysmal atrial fibrillation; G25.81 Restless legs syndrome; Z79.899 Other long term (current) drug therapy; Z88.2 Allergy status to sulfonamides; Z88.8 Allergy status to other drugs, medicaments and biological substances; Z79.01 Long term (current) use of anticoagulants; Z98.890 Other specified postprocedural states; Z82.49 Family history of ischemic heart disease and other diseases of the circulatory system; Z80.1 Family history of malignant neoplasm of trachea, bronchus and lung; Z83.79 Family history of other diseases of the digestive system; Z68.34 Body mass index [BMI] 34.0-34.9, adult

== ENCOUNTER → 2016-12-03 | Outpatient (CLI) | payer MEDICARE, MEDICAID ==
[~2016-12-03] MED LIST changes: +ALBUTEROL 3 ML 33 ML INH; +DOXYCYCLINE100 M3 PO; +HYDROCHLOROTH12.5 M3 PO; +LEVAQUIN750 M1 PO; +LEVOTHYROXINE0.2 M2 PO; +MELOXICAM7.5 MG PO; +MIRAPEX0.75 MG PO; +MYSOLINE50 M2 PO; +OYSTER SHELL CA1 T23 PO; +PROAIR HFA8.5 GM INH
[2016-12-03 10:10] LABS: BUN 16 mg/dl (7-24); CARBON DIOXIDE 29 mmol/L (21-32); CHLORIDE 104 mmol/L (98-107); EST GLOM FILT AFRICAN AMERICAN > 60 ml/min; GLUCOSE 85 mg/dL (65-99); POTASSIUM 3.4 mmol/L (3.5-5.1); SODIUM 141 mmol/L (136-145)
== END | disposition home or self-care (01) ==
LOC: LAB 09:17
PROVIDERS: Internal Medicine
DX: N28.9 Disorder of kidney and ureter, unspecified (principal)

== ENCOUNTER → 2017-01-02 | Outpatient (CLI) | payer MEDICARE, MEDICAID | END | disposition home or self-care (01) | LOC: RAD 08:16 | DX: M17.12 Unilateral primary osteoarthritis, left knee (principal); M16.12 Unilateral primary osteoarthritis, left hip; M25.551 Pain in right hip; M25.552 Pain in left hip ==

== ENCOUNTER 2017-02-05 16:46 | Inpatient (IN) | payer MEDICARE, MEDICAID ==
[~2017-02-05] VITALS: Ht 176.5 cm; Wt 100.8 kg
[2017-02-05] VITALS (8 sets, daily range): BP systolic 90–140; BP diastolic 56–90
[2017-02-05 17:51] LABS: BASO # 0.1 10*3/uL (0.0-0.1); BASO % 0.9 % (0.0-1.0); EOS # 0.2 10*3/uL (0.0-0.4); EOS % 2.3 % (1.0-4.0); HEMATOCRIT 41.5 % (37.0-47.0); HEMOGLOBIN 13.9 g/dl (12.0-16.0); LYMPH # 2.5 10*3/uL (1.3-4.4); LYMPH % 36.6 % (27.0-41.0); MEAN CELL VOLUME 85.9 fl (81.0-99.0); MEAN CORPUSCULAR HGB 28.8 pg (27.0-31.0); MEAN CORPUSCULAR HGB CONC 33.5 g/dl (33.0-37.0); MEAN PLATELET VOLUME 10.4 fl (9.6-12.3); MONO # 0.6 10*3/uL (0.1-1.0); MONO % 8.8 % (3.0-9.0); NEUT # 3.5 10*3/uL (2.3-7.9); NEUT % 51.1 % (47.0-73.0); PLATELET COUNT AUTOMATED 355 10*3/uL (130-400); RED BLOOD COUNT 4.83 10*6/uL (4.10-5.10); RED CELL DISTRI WIDTH 13.2 % (0-14.5); WHITE BLOOD COUNT 6.9 10*3/uL (4.8-10.8)
[2017-02-05 17:52] LABS: PROTHROMBIN TIME 10.4 SECONDS (9.0-12.4)
[2017-02-05 17:58] LABS: ALBUMIN 3.7 gm/dl (3.1-4.5); ALKALINE PHOSPHATASE 80 U/L (45-117); BILIRUBIN, TOTAL 0.2 mg/dl (0.2-1.0); BUN 22 mg/dl (7-24); CARBON DIOXIDE 28 mmol/L (21-32); CHLORIDE 104 mmol/L (98-107); CPK 47 U/L (26-192); EST GLOM FILT AFRICAN AMERICAN 47 ml/min; GLUCOSE 92 mg/dL (65-99); MAGNESIUM 1.9 mg/dL (1.5-2.1); POTASSIUM 3.8 mmol/L (3.5-5.1); SGOT/AST 19 IU/L (3-35); SGPT/ALT 21 U/L (12-78); SODIUM 140 mmol/L (136-145); TOTAL PROTEIN 7.2 gm/dL (6.4-8.2)
[2017-02-05 17:59] LABS: CKMB < 0.5 ng/ml (0.5-3.6); TROPONIN I < 0.015 ng/ml (<0.045)
[2017-02-05 21:40] LABS: BILIRUBIN NEGATIVE (NEGATIVE); BLOOD TRACE-INTACT (NEGATIVE); CLARITY CLEAR (CLEAR); COLOR YELLOW (YELLOW); GLUCOSE NEGATIVE (NEGATIVE); KETONE NEGATIVE (NEGATIVE); LEUKO ESTERASE NEGATIVE (NEGATIVE); NITRITE NEGATIVE (NEGATIVE); PROTEIN NEGATIVE (NEGATIVE); SPECIFIC GRAVITY 1.025 (1.005-1.030); UROBILINOGEN 0.2 E.U./dl (0.2-1.0)
[2017-02-05 21:50] LABS: BACTERIA TRACE; HYALINE CAST 51-100; MUCOUS 1+
[2017-02-05 21:51] LABS: EPITHELIAL CELLS 0-2; URINE REFLEX COMMENT NO (NO)
[2017-02-05] MEDS ORDERED: Diltiazem180 MG PO (22:59)
[2017-02-05] MEDS ORDERED: HYDR25T PO (23:01)
[2017-02-06] VITALS (9 sets, daily range): BP systolic 90–130; BP diastolic 54–78
[2017-02-06 06:43] LABS: BASO % 0.4 % (0.0-1.0); HEMATOCRIT 37.1 % (37.0-47.0); HEMOGLOBIN 12.6 g/dl (12.0-16.0); LYMPH # 0.6 10*3/uL (1.3-4.4); LYMPH % 13.3 % (27.0-41.0); MEAN CELL VOLUME 85.5 fl (81.0-99.0); MEAN PLATELET VOLUME 10.6 fl (9.6-12.3); MONO % 0.9 % (3.0-9.0); NEUT # 3.8 10*3/uL (2.3-7.9); PLATELET COUNT AUTOMATED 301 10*3/uL (130-400); RED BLOOD COUNT 4.34 10*6/uL (4.10-5.10); RED CELL DISTRI WIDTH 12.9 % (0-14.5); WHITE BLOOD COUNT 4.5 10*3/uL (4.8-10.8)
[2017-02-06 07:12] LABS: FREE T4 1.52 ng/dl (0.76-1.46); MAGNESIUM 1.8 mg/dL (1.5-2.1); PHOSPHOROUS 3.9 mg/dL (2.5-4.9); POTASSIUM 3.4 mmol/L (3.5-5.1)
[2017-02-06 07:21] LABS: PROTHROMBIN TIME 10.8 SECONDS (9.0-12.4)
[2017-02-06 07:30] LABS: HEMOGLOBIN A1c 5.5 % (4.8-5.6)
[2017-02-07] VITALS: BP 120/72
[2017-02-07 07:06] LABS: HEMATOCRIT 33.5 % (37.0-47.0); HEMOGLOBIN 11.2 g/dl (12.0-16.0); MEAN CORPUSCULAR HGB 29.1 pg (27.0-31.0); MEAN CORPUSCULAR HGB CONC 33.4 g/dl (33.0-37.0); MEAN PLATELET VOLUME 10.6 fl (9.6-12.3); PLATELET COUNT AUTOMATED 291 10*3/uL (130-400); RED BLOOD COUNT 3.85 10*6/uL (4.10-5.10); RED CELL DISTRI WIDTH 13.3 % (0-14.5); WHITE BLOOD COUNT 11.5 10*3/uL (4.8-10.8)
[2017-02-07 07:30] LABS: ALBUMIN 3.3 gm/dl (3.1-4.5); BUN 23 mg/dl (7-24); CARBON DIOXIDE 21 mmol/L (21-32); CHLORIDE 106 mmol/L (98-107); GLUCOSE 126 mg/dL (65-99); LYMPHOCYTE # 0.6 10*3/uL (1.3-4.4); NEUTROPHIL # 10.9 10*3/uL (2.3-7.9); NEUTROPHILS 95 % (47-73); PLATELET SUFFICIENCY NORMAL (NORMAL); SGOT/AST 13 IU/L (3-35); SODIUM 138 mmol/L (136-145); TOTAL CELLS COUNTED 100 #CELLS
[2017-02-07 07:33] LABS: ALKALINE PHOSPHATASE 58 U/L (45-117); BILIRUBIN, TOTAL 0.2 mg/dl (0.2-1.0); EST GLOM FILT AFRICAN AMERICAN > 60 ml/min; SGPT/ALT 18 U/L (12-78); TOTAL PROTEIN 6.6 gm/dL (6.4-8.2)
[2017-02-07 08:00] VITALS: BP 105/75
[2017-02-07] MEDS ORDERED: MUCINEX ER600 MG PO (09:27)
[2017-02-07] MEDS ORDERED: LEVAQUIN500 M2 PO (09:30)
[2017-02-07] MEDS ORDERED: PREDNISONE50 MG PO (09:30)
[2017-02-07 12:00] VITALS: BP 109/73
[2017-02-07] MEDS ORDERED: METOPROLOL TART50 M1 PO (15:10)
== END 2017-02-07 15:50 | disposition home health service (06) | DRG 308 ==
LOC: ED 16:46 → EDHOLD 19:03 → 5E 19:03
PROVIDERS: Family Medicine; Internal Medicine; Internal Medicine Nephrology; Student in an Organized Health Care Education/Training Program
DX: I48.0 Paroxysmal atrial fibrillation (principal); N17.0 Acute kidney failure with tubular necrosis; J44.1 Chronic obstructive pulmonary disease with (acute) exacerbation; D68.59 Other primary thrombophilia; E83.51 Hypocalcemia; J45.901 Unspecified asthma with (acute) exacerbation; K21.9 Gastro-esophageal reflux disease without esophagitis; F32.9 Major depressive disorder, single episode, unspecified; E89.0 Postprocedural hypothyroidism; M19.90 Unspecified osteoarthritis, unspecified site; I12.9 Hypertensive chronic kidney disease with stage 1 through stage 4 chronic kidney disease, or unspecified chronic kidney disease; F41.9 Anxiety disorder, unspecified; E66.9 Obesity, unspecified; N18.3 Chronic kidney disease, stage 3 (moderate); Z83.3 Family history of diabetes mellitus; Z80.1 Family history of malignant neoplasm of trachea, bronchus and lung; Z88.2 Allergy status to sulfonamides; Z88.8 Allergy status to other drugs, medicaments and biological substances; Z79.899 Other long term (current) drug therapy; Z68.32 Body mass index [BMI] 32.0-32.9, adult

== ENCOUNTER → 2017-02-26 | Outpatient (CLI) | payer MEDICARE, MEDICAID ==
[~2017-02-26] MED LIST changes: +Diltiazem180 MG PO; +HYDR25T PO; +LEVAQUIN500 M2 PO; +PREDNISONE50 MG PO
[2017-02-26 13:00] LABS: ALBUMIN 3.7 gm/dl (3.1-4.5); POTASSIUM 3.9 mmol/L (3.5-5.1)
[2017-02-26 13:39] LABS: VITAMIN D, 25-HYDROXY 35.6 ng/mL (30-100)
[2017-02-26 13:40] LABS: PTH INTACT 53.3 pg/mL (14.0-72.0)
== END | disposition home or self-care (01) ==
LOC: LAB 12:12
PROVIDERS: Internal Medicine Nephrology
DX: E83.51 Hypocalcemia (principal)

== ENCOUNTER 2017-07-29 17:25 | Inpatient (IN) | payer MEDICARE, MEDICAID ==
[~2017-07-29] VITALS: Ht 176.5 cm; Wt 97.7 kg
--- NOTE | ~2017-07-29 | PR ---
[place], [place] PROGRESS NOTE NAME: SANDRA CHRISTOPHER UNIT #: [id number] ROOM: 525 DOCTOR: MARTY MILLER MD BIRTHDATE: [birth year] DOS: 07/31/2017 SUBJECTIVE: The patient was noted same essentially with excessive chest congestion, coughing, wheezing, and shortness of breath. Continued corticosteroids and bronchodilators. She was seen independently in [id number] encounter, history was confirmed, physical examination was performed. All the labs were reviewed. Assessment of the patient for today's visit was personally completed and any changes in the medical management personally made. Note done by the medical record transcriber was approved as well. The patient has been noted n.p.o. past midnight for bronchoscopy. Denies any abdominal pain, nausea, vomiting, dizziness at this time, headache or any edema of the lower extremities or any pain. PHYSICAL EXAMINATION: VITAL SIGNS: The patient reviewed was essentially noted normal this morning. The pulse oxygen saturation for the patient was recorded with 1 liter nasal cannula 95% saturation. LUNGS: Diffuse expiratory wheezing without any crackles. ABDOMEN: Soft, nontender. EXTREMITIES: The patient was noted without any edema. SKIN: Visible skin, no lesions or rashes. MUSCULOSKELETAL: Without any deformities. LABORATORY DATA: BMP: BUN noted 23 today, creatinine of 1.22. Albumin 2.9. CBC of the patient, WBC count 13.6, hemoglobin 11.5, hematocrit 33.6. Blood culture one set for the patient from the was noted as negative. Second blood cultures was pending. IMPRESSION: The patient who has been noted with current ongoing acute exacerbation of chronic obstructive pulmonary disease/bronchial asthma with acute tracheobronchitis, bronchoscopy was planned to be done today. Ongoing debility for the patient was also noted. PLAN OF TREATMENT: Any changes in the medication for the patient necessary will be done after the bronchoscopy. Continue to monitor respiratory status closely. Other treatment plan and management as previously including the steroids without any changes. [place], [place] PROGRESS NOTE NAME: SANDRA CHRISTOPHER UNIT #: [id number] ROOM: 525 DOCTOR: MARTY MILLER MD BIRTHDATE: [birth year] MARTY GOMEZ MD CM:PNTRANS [id number] MARTY SOLANO MD 08/01/17 0159 interface
--- NOTE | ~2017-07-29 | PR ---
[place], [place] PROGRESS NOTE NAME: SANDRA CHRISTOPHER UNIT #: [id number] ROOM: 505 DOCTOR: PATRICIA SOLANO MD,MARTY BIRTHDATE: [birth year] DOS: 08/04/2017 SUBJECTIVE: She has been noted comfortable at this time. Coughing continued to resolve progressively. Shortness of breath is improving. There were no symptoms of chest pain or any abdominal pain. OBJECTIVE: VITAL SIGNS: For the patient which was recorded for the patient shows the temperature of the patient noted as normal. The respiratory rate recorded as 18, heart rate 66, blood pressure 138/102, early 152/84. HEAD, EARS, EYES, NOSE AND THROAT: Examination shows no acute change. NECK: Supple. CARDIOVASCULAR: S1, S2 is audible. LUNGS: Without any wheeze or crackles. Occasional wheezing. ABDOMEN: Soft, nontender. LABORATORY DATA: Blood culture from 15 of this month was noted 1 with no bacterial growth. Other culture noted with the budding yeast, WBC count 08/04/2017, WBC count 12.1 with 132 platelets. IMPRESSION: Progressive resolution of acute exacerbation of bronchial asthma. Continue current plan of treatment for acute bronchitis. The patient was resolving as well. Evidence of yeast in the blood culture at this time, which is already being assessed for the patient for further recommendation by the Infectious Disease specialist. PLAN OF MANAGEMENT: Reduce the Solu-Medrol dose. The patient 40 mg daily. Monitor labs, which has been done for the yeast infection by the Infectious Disease Services. In the meantime, no other treatment changes will be necessary. Supportive care, other treatment. The patient already getting the micafungin for the fungal organism coverage. MARTY GOMEZ MD CM:PNTRANS [id number] MARTY SOLANO MD 08/04/17 1740 interface
--- NOTE | ~2017-07-29 | EKG ---
[place], [place] ELECTROCARDIOGRAM REPORT NAME: ASNDRA CHRISTOPHER UNIT #: [id number] ROOM: [facility] DOCTOR: PATRICIA SOLANO MD,MARTY BIRTHDATE: [birth year] DOS: 07/30/2017 TIME: Done at 12:57 p.m. Normal sinus rhythm noted. Heart rate 85 beats per minute. MARTY GOMEZ MD CM:EKGRPT:ELECTROCARDIOGRAM REPORT [id number] MARTY SOLANO MD
--- NOTE | ~2017-07-29 | CON ---
[place], [place] REPORT OF CONSULTATION NAME: SANDRA CHRISTOPHER UNIT #: [id number] ROOM: 525 DOCTOR: MARTY MILLER MD BIRTHDATE: [birth year] DOS: 07/30/2017 PULMONARY CONSULTATION, EVALUATION, AND MANAGEMENT CONSULTATION REQUESTING BY: Hospitalist Services. REASON FOR CONSULTATION: Assess the patient with severe acute respiratory symptoms with exacerbation of chronic obstructive pulmonary disease/bronchial asthma. HISTORY OF PRESENT ILLNESS: This is a 57-year-old female patient who has been brought to the hospital as the patient developing symptoms of increased shortness of breath. The shortness of breath of the patient had been occurring for the past 3 days or so started with severe cough. The patient has chest congestion that was initially started. The patient does complain of significant wheezing. The patient has tightness in the chest. Cough has been noted severe and episodic for the patient as well. Denies symptoms of hemoptysis or chest pain described in the ribcage secondary to severe excessive coughing several times in a day. She was also noted with a cough at nighttime. The patient with difficulty sleeping because of that. REVIEW OF SYSTEMS: CONSTITUTIONAL: Fatigue and tiredness noted. Denies any symptoms of fever or chills. EYES: Denies any burning, redness, or tenderness. EARS, NOSE, AND THROAT: Denies sore throat, hoarseness, otalgia, postnasal drainage, or epistaxis. CARDIOVASCULAR: Denies anginal pain, edema, or pain of lower extremity. GASTROINTESTINAL: Dysphagia, nausea, vomiting, diarrhea, abdominal pain, hematemesis, melena, or hematochezia. SKIN: Denies lesions or rashes. MUSCULOSKELETAL: Denies acute joint pain, redness, or tenderness. CENTRAL NERVOUS SYSTEM: No dizziness, headache, diplopia, syncopal episode, or seizures. Remaining systems were reviewed with the patient, they were noted all negative. PAST MEDICAL HISTORY 1. The patient was known with history of uncomplicated gwecbrbp-no-nunoun bronchial asthma. 2. Essential hypertension. 3. Gastroesophageal reflux. 4. Osteoarthritis. 5. Hypothyroidism. 6. Atrial fibrillation. 7. General anxiety and neurotic depression. 8. Moderate obesity. 9. Hypoparathyroidism. 10. Restless leg syndrome. 11. Chronic kidney disease, stage 3. [place], [place] REPORT OF CONSULTATION NAME[id number] UNIT #: [id number] ROOM: 525 DOCTOR: MARTY MILLER MD BIRTHDATE: [birth year] PAST SURGICAL HISTORY: 1. Parathyroidectomy. 2. Surgery of the foot. 3. . 4. Therapeutic bronchoscopy, last bronchoscopy was done in 2017. SOCIAL HISTORY: The patient is , has one child. Denies any history of tobacco, alcohol, or illicit drug use. There was no history of occupation-related pulmonary exposure. FAMILY HISTORY: Noncontributory. MEDICATIONS: The current administered medications of the patient were noted as use of primidone, vitamin D, benzonatate, potassium chloride, metoprolol tartrate, Cardizem-CD, Carafate, Singulair, Rythmol, omeprazole, levothyroxine, Seroquel, Eliquis, Solu-Medrol, Xanax, Levaquin, codeine, and other p.r.n. medications use. ALLERGIES: DRUG ALLERGY HISTORY OF THE PATIENT WAS NOTED ALLERGIES TO 1. SULFA DRUGS CAUSES SYNCOPE. 2. PHENOBARBITAL. PHYSICAL EXAMINATION: GENERAL: This is 57-year-old white female currently noted awake and alert without any distress. VITAL SIGNS: Height of 5 feet 9 inches, weight of 215 pounds, BMI 31. HEENT: Head was atraumatic. Eyes nonicterus. NECK: Supple. Oral mucosa is moist. CARDIOVASCULAR: S1, S2 audible. LUNGS: Noted with diffuse reduced breath sounds bilaterally with expiratory wheezing diffusely and severe. There were no crackles heard. ABDOMEN: Soft, nontender. Moderate obesity. Bowel sounds present. No tenderness. EXTREMITIES: No clubbing, cyanosis, or edema. MUSCULOSKELETAL: No deformities. SKIN: No lesions or rashes. CENTRAL NERVOUS SYSTEM: Cranial nerves 2-12 intact. No focal deficit. LABORATORY DATA: The patient's CBC this morning was noted mild anemia, otherwise normal. CBC that was done yesterday on admission remains normal. Lactic acid yesterday normal on admission. CMP yesterday on admission, BUN 15, creatinine 1.26, and glucose 127. The CMP of the patient this morning, BUN 14, creatinine 1.07. Chest x-ray of the patient, PA lateral view that was completed yesterday, the patient was noted with increased interstitial marking of the patient without any definitive infiltration or consolidation. Influenza rapid A and B, nasal washing antigen negative. IMPRESSION: 1. The patient who had been currently admitted to the hospital noted with acute exacerbation of bronchial asthma and acute bronchitis at this time. Whether [place], [place] REPORT OF CONSULTATION NAME: SANDRA CHRISTOPHER UNIT #: [id number] ROOM: [facility] DOCTOR: PATRICIA SOLANO MD,MARTY BIRTHDATE: [birth year] viral or bacterial at this time was unknown. Other symptoms have been noted rapidly progressive of the patient with previous home treatment. 2. History of moderate obesity as well. 3. Increased interstitial marking of the patient, questionable fluid overload. The patient was noted with atrial fibrillation with rapid ventricular response on admission may be resulting in the current finding of the chest x-ray. PLAN OF MANAGEMENT: The patient would benefit from fibrobronchoscopy, planned to be done in the morning because of severe coughing and wheezing at this time. Repeat another chest x-ray in the morning. Use of the Lasix, if the finding remains persistent for the patient tomorrow. In addition, change in treatment if necessary will be done for this patient as the illness progresses. Thanks for allowing me to participate in the care of this patient. MARTY GOMEZ MD CM:CONSTR:REPORT OF CONSULTATION 1548 07/31/17 0200 interface
--- NOTE | ~2017-07-29 | PR ---
[place], [place] PROGRESS NOTE NAME: SANDRA CHRISTOPHER UNIT #: [id number] ROOM: 505 DOCTOR: MARTY MILLER MD BIRTHDATE: [birth year] DOS: 08/03/2017 SUBJECTIVE: She has been showing progressive resolution and improvement in the respiratory symptoms at this time. She has not been noted symptoms of chest pain, coughing, wheezing or slowly resolving. There were no symptoms of abdominal pain. She will continue micafungin with further workup yeast in the blood . The patient has been ordered beta-Glucan assay for this patient, which was pending as well as a serology for fungal organisms. OBJECTIVE: VITAL SIGNS: For the patient which were recorded showed the temperature noted as normal. The respiratory rate of the patient recorded as 18. Heart rate was noted as 70, blood pressure 156/98. Pulse oxygen saturation on room air 95% saturation. HEENT: No acute change. NECK: Supple. CARDIOVASCULAR: S1, S2 audible. LUNGS: Noted occasional wheezing, no crackles. ABDOMEN: Soft, nontender. EXTREMITIES: Without any acute edema. IMPRESSION: 1. The patient was noted with progressive resolution of the acute exacerbation of bronchial asthma and acute bronchitis. 2. Yeast in the blood for the patient at this time significance unknown, empirically treated with micafungin by the Infectious Disease services. PLAN OF TREATMENT: No changes in the plan of therapy upon discharge, the patient could be seen in the office. She would receive the tapering dose of prednisone and the short-acting bronchodilators and inhaled corticosteroids. The patient will be started on Arnuity 200 mcg 1 inhalation daily. Use of the nebulizer as needed for shortness of breath will be given for the home use as well. [place], [place] PROGRESS NOTE NAME: SANDRA CHRISTOPHER UNIT #: [id number] ROOM: 505 DOCTOR: MARTY MILLER MD BIRTHDATE: [birth year] MARTY GOMEZ MD CM:PNTRANS [id number] MARTY SOLANO MD 08/03/171952 interface
--- NOTE | ~2017-07-29 | PR ---
[place], [place] PROGRESS NOTE [id number] UNIT #: [id number] ROOM: 525 DOCTOR: PATRICIA SOLANO MD,MARTY BIRTHDATE: [birth year] DOS: 08/01/2017 The patient was independently rather seen and examined today with [id number] encounter, history was confirmed. Physical examination performed. The assessment of the patient was completed. After all of the above and review of the labs. The management plan was personally done for today's visit as well. The note done by the medical voucher clerk was approved. The patient has been showing reduction of the respiratory symptom. Gradually bronchoscopy done yesterday, still noted with a moderate cough with minimal sputum expectoration at this time. She has not been noted any symptoms of chest pain or hemoptysis. The patient denies any sore throat, hoarseness. Denies any dizziness, headache. Denies symptoms of abdominal pain. Denies symptoms of edema of the lower extremities. OBJECTIVE: VITAL SIGNS: For the patient were reviewed they were noted as normal temperature at this time and other vital signs were normal. The pulse oxygen saturation for the patient on room air was noted as 94%. HEENT: Examination shows head was atraumatic. Eyes, nonicterus. NECK: Supple. CARDIOVASCULAR: S1, S2 is audible. LUNGS: Decreased breaths sounds with mild to moderate expiratory wheezing noted, decreased previous exam. There were no crackles. ABDOMEN: Soft, nontender, bowel sounds present. CENTRAL NERVOUS SYSTEM: Noted intact. No focal deficit. Cranial nerves were intact. MUSCULOSKELETAL: Without any acute deformities. SKIN: No lesions or rashes. Culture of the bronchial washing yesterday noted normal amos preliminary final results pending. Gram stain many white blood cells with few gram-negative bacilli. The patient had a CT scan of the abdomen and pelvis was completed yesterday, ordered by the primary care attending was noted as a small opacity in the left lower lung more like assessment of atelectasis. Trace bilateral pleural fluid was noted. Small pericardial effusion was also reported by the radiologist. IMPRESSION: 1. The patient was being currently noted with severe acute exacerbation of bronchial asthma, acute bronchitis, small area of atelectasis left lower lobe as well. 2. Small pleural fluid secondary fluid overload would be considered. 3. Ksbk-ed-mluhkbgf obesity as well. PLAN OF TREATMENT: Monitor culture results at the present time without any changes. Continue other supportive therapy, plan of management and treatment as in progress. Additional change in the treatment will be recommended based on the progression of her illness. At this time, no changes in the steroids will be necessary. The culture will be monitored. Discharge planning may be started from tomorrow depends on the culture results and further improvement in the respiratory status. [place], [place] PROGRESS NOTE NAME: ASHWINSANDRA A UNIT #: [id number] ROOM: [facility] DOCTOR: MARTY MILLER MD BIRTHDATE: [birth year] MARTY GOMEZ MD CM:RABIA [id number] MARTY SOLANO MD 08/01/171933 interface
--- NOTE | ~2017-07-29 | PR ---
[place], [place] PROGRESS NOTE NAME: [id number] UNIT #: [id number] ROOM: 525 DOCTOR: NIEVES PAIZ DO BIRTHDATE: [birth year] DOS: 07/31/2017 SUBJECTIVE: The patient is seen and examined prior to bronchoscopy this morning in no acute distress. The patient has no new complaints. The patient reports that she has continued wheezing and shortness of breath with productive cough. The patient remains stable. PHYSICAL EXAMINATION: VITAL SIGNS: Temperature 97.8, pulse is 84, respirations 19, blood pressure 136/91, pulse ox is 95% on room air. GENERAL APPEARANCE: Awake, alert and oriented times 3, no acute distress. HEENT: Eyes are clear. No injection. Nares are patent. Mucous membranes moist. NECK: Supple, nontender. CARDIOVASCULAR: S1 and S2 are appreciated. No murmurs, gallops or rubs. Regular rate and rhythm. LUNGS: Decreased breath sounds with expiratory wheezing, moderate to severe in nature. No crackles, rales or rhonchi appreciated. ABDOMEN: Soft, nontender with positive bowel sounds. EXTREMITIES: No clubbing, cyanosis or edema. MUSCULOSKELETAL: No deformities. NEUROLOGIC: Negative for focal deficits. LABORATORY DATA: White count 13.6, hemoglobin 11.5, hematocrit 33.6, platelets 363. Chemistries: Sodium 139, potassium 4.0, chloride 107, carbon dioxide 23. Creatinine 1.2, glucose 109. Acid fast staining is pending. Bronchial wash is pending. Blood cultures remain negative. IMPRESSION: 1. Acute exacerbation of asthma with acute bronchitis, status post bronchoscopy, likely secondary to viral or bacterial insult. 2. History of moderate obesity. 3. Questionable fluid overload. 4. Atrial fibrillation, rapid ventricular response on admission with resolution. PLAN OF CARE: The patient is status post bronch. Cultures are pending. Continue with current antibiotic treatment, DuoNeb, steroids. We will continue to follow this patient. No change in care, but if cultures come back positive, we will adjust the treatment and plan accordingly. The patient continues to improve. We will monitor for resolution of symptoms and aid in discharge planning. NIEVES PAIZ DO [place], [place] PROGRESS NOTE NAME: SANDRA CHRISTOPHER UNIT #: [id number] ROOM: 525 DOCTOR: NIEVES PAIZ DO BIRTHDATE: [birth year] MARTY GOMEZ MD CM:PNKUMAR [id number] NIEVES PAIZ DO 07/31/17 1550 interface
--- NOTE | ~2017-07-29 | PR ---
[place], [place] PROGRESS NOTE NAME: SANDRA CHRISTOPHER UNIT #: [id number] ROOM: 525 DOCTOR: IZABEL ARACELIY BIRTHDATE: [birth year] DOS: 08/01/2017 SUBJECTIVE: The patient is seen and examined at bedside. The patient complains of improved wheezing, but continues to have a mild cough. The patient dramatically has improved since the bronchoscopy yesterday, has no new complaints today at this time. OBJECTIVE: VITAL SIGNS: Temperature is 97.6, pulse is 63, respirations 20, blood pressure 134/82, pulse ox is 94% on room air. LABS: Air acid fast stain remains negative. Blood cultures remain negative with the repeat; the blood cultures from the were positive for budding yeast. Flu cultures and bronchial washings remain negative. Chest x-ray yesterday shows no active disease. No adverse change. PHYSICAL EXAMINATION: GENERAL APPEARANCE: Awake, alert and oriented x 3, in mild distress. HEENT: Eyes are clear. Nares are patent. Mucous membranes are moist. NECK: Supple, nontender. CARDIOVASCULAR: Regular rate and rhythm; no murmurs, gallops or rubs. PULMONARY: Mild expiratory wheezing with mild rhonchi, no rales appreciated. ABDOMEN: Soft, nontender with positive bowel signs. EXTREMITIES: Negative for edema, erythema, clubbing or cyanosis. IMPRESSION: Acute on chronic obstructive pulmonary disease with hypercapnia and hypoxia, status post bronchoscopy. TREATMENT PLAN: At this time, we will continue with the Solu-Medrol 40 mg t.i.d., Kayla Recio. Additionally, we discussed with the patient refilling her nebulizer treatments for at home and her inhalers upon discharge. The patient will likely be ready for discharge tomorrow as long as she continues to improve chronically. We will reassess the patient tomorrow for stabilization for discharge. NIEVES PAIZ DO [place], [place] PROGRESS NOTE NAME: SANDRA CHRISTOPHER UNIT #: [id number] ROOM: 525 DOCTOR: NIEVES PAIZ DO BIRTHDATE: [birth year] MARTY GOMEZ MD CM:RABIA [id number] [id number] NIEVES PAIZ DO 08/01/172307 interface
--- NOTE | ~2017-07-29 | PR ---
[place], [place] PROGRESS NOTE NAME: SANDRA CHRISTOPHER UNIT #: [id number] ROOM: 505 DOCTOR: NIEVES PAIZ DO BIRTHDATE: [birth year] DOS: 08/02/2017 SUBJECTIVE: The patient was seen and examined at bedside. The patient was sitting upright in bed in no acute distress. The patient reports that her wheezing has improved and has almost been resolved. Shortness of breath has also improved. The patient reports that she feels like she is getting close to being ready to go home. The patient reports that she does need refills on her nebulizer and inhalers at home, but otherwise feels like she can care for herself at home with her current medical condition. OBJECTIVE: VITAL SIGNS: Temperature 97.7, pulse is 73, respirations 21, blood pressure 135/86 and pulse ox is 92% on 1 liter nasal cannula. GENERAL: The patient is alert and oriented times 3, no acute distress. HEENT: Eyes are clear. Nares are patent. Mucous membranes are moist. NECK: Supple, nontender. CARDIOVASCULAR: Regular rate and rhythm. No murmurs, gallops or rubs. PULMONARY: Clear to auscultation with only mild expiratory wheezing, no rales, no rhonchi. ABDOMEN: Soft, nontender with positive bowel sounds. EXTREMITIES: Clear of edema, erythema, clubbing and cyanosis. NEUROLOGIC: Negative for focal deficits LABORATORY DATA: White count 11.1, hemoglobin 11.7, hematocrit 34.3, platelet count is 410. Chemistries: Sodium 139, potassium 4.1, chloride 105, carbon dioxide 24, BUN 31, creatinine 1.17, glucose is 104, calcium 7.2. Serologies for acid fast and various fungal and yeast infections remain negative. Cultures from the 15th grew budding yeast. Repeat cultures are pending. Influenza was negative and strep was also negative. IMPRESSION: 1. Acute on chronic obstructive pulmonary disease with hypercapnia and hypoxia, status post bronchoscopy, patient is improved. 2. Positive blood cultures for budding yeast. Infectious disease is following. TREATMENT PLAN: The patient is medically clear from a pulmonary standpoint for discharge; however, we will defer to the infectious disease team for management of the positive blood culture and clearing the patient for discharge home. The patient can continue on Solu-Medrol, Levaquin, DuoNeb while admitted. Upon discharge, recommend a steroid taper with p.o. antibiotics and her nebulizer inhalers will be refilled from Dr. Gomez's office. Follow up with Dr. Gomez in 1-2 weeks. NIEVES PAIZ DO [place], [place] PROGRESS NOTE NAME: SANDRA CHRISTOPHER UNIT #: [id number] ROOM: [facility] DOCTOR: NIEVES PAIZ DO BIRTHDATE: [birth year] MARTY GOMEZ MD CM:PNKUMAR [phone] NIEVES PAIZ DO 08/02/17 1255 interface
--- NOTE | ~2017-07-29 | PR ---
[place], [place] PROGRESS NOTE NAME: SANDRA CHRISTOPHER UNIT #: [id number] ROOM: 505 DOCTOR: MICHELLE JONES,VALDEMAR Braswell BIRTHDATE: [birth year] DOS: 08/03/2017 ADDENDUM After reviewing the chart, labs and radiographs, I agree with above plans as described above. We will follow the patient up clinically and adjust accordingly. VALDEMAR MARTINEZ MD CM:PNTRANS [phone] VALDEMAR MARTINEZ MD 08/08/17 1602 interface
--- NOTE | ~2017-07-29 | PR ---
[place], [place] PROGRESS NOTE NAME: SANDRA CHRISTOPHER UNIT #: [id number] ROOM: 505 DOCTOR: PATRICIA SOLANO MD,MARTY BIRTHDATE: [birth year] DOS: 08/02/2017 SUBJECTIVE: The patient's blood culture which was done on the 07/29/2017 were noted as budding yeast with pending identification. At this time, the patient was originally planned for discharge in pulmonary standpoint that could be done. However, the opinion will be obtained from the Infectious Disease Service about the recommendation of about this current abnormal blood culture with yeast prior to the discharge would be considered. The communication has been conveyed by the medical records manager, Dr. Rodríguez working with me to the Infectious disease specialist team and the primary care team. MARTY GOMEZ MD CM:PNTRANS [phone] MARTY SOLANO MD 08/02/17 2247 interface
--- NOTE | ~2017-07-29 | PR ---
[place], [place] PROGRESS NOTE NAME: SANDRA CHRISTOPHER UNIT #: [id number] ROOM: 505 DOCTOR: MARTY MILLER MD BIRTHDATE: [birth year] DOS: 08/02/2017 SUBJECTIVE: She was seen today in [id number] encounter. The history was confirmed. The physical examination was performed. All the available labs were reviewed. Assessment and management of the patient was today noted personally completed. Note done by the medical center representative was approved. The patient has been showing further reduction of respiratory symptom, reduction in the coughing and chest pain. Still complaining of cough if the patient lies down flat. The symptoms have been improving. The patient post-bronchoscopy not completely resolved. PHYSICAL EXAMINATION: VITAL SIGNS: The patient reviewed to be normal. The pulse oxygen saturation of the patient recorded as 92% on room air. LUNGS: Noted with occasional wheezing, mostly in the lower lung. There were no crackles. ABDOMEN: Soft and nontender. EXTREMITIES: Without any edema. LABORATORY DATA: Culture of the bronchial washing noted as normal amos. CBC: WBC count mildly elevated at 11.1, platelet count was mildly elevated at 410 and mild anemia with a hemoglobin of 11. In BMP of the patient, BUN was noted mildly elevated at 31 with a creatinine 1.17. ASSESSMENT: The patient has been showing progressive resolution improvement in the respiration symptoms, exacerbation of bronchial asthma and acute bronchitis. Culture of the bronchial washing noted negative. PLAN OF TREATMENT: The patient could be discharged home at the present time for followup in the office. She will be prescribed the nebulized bronchodilator to be used for p.r.n. respiratory symptom management. Until the acute respiratory symptom resolve, she will be also given the other inhaler medication for the long-term management of bronchial asthma. Outpatient followup recommended. [place], [place] PROGRESS NOTE NAME: SANDRA CHRISTOPHER UNIT #: [id number] ROOM: 505 DOCTOR: MARTY MILLER MD BIRTHDATE: [birth year] MARTY GOMEZ MD CM:PNTRANS [phone] MARTY SOLANO MD 08/02/17 2155 interface
--- NOTE | ~2017-07-29 | PR ---
[place], [place] PROGRESS NOTE [id number] UN[facility] #: [id number] ROOM: 505 DOCTOR: CATRACHITO COLLINS,OCTOBER BIRTHDATE: [birth year] DOS: 08/03/2017 SUBJECTIVE: The patient is being followed for a fungemia. Her admitting blood cultures from the have grown a branching yeast. She is currently on Mycamine for that. She came in with upper respiratory symptoms. She was bronched. There were no fungal elements seen on her bronch wash. Repeat blood cultures are negative. The second set of blood cultures on the remains sterile. She only has growth in 1 bottle. She is alert and oriented, depressed, crying, anxious. Denies any pain anywhere. Has a loose nonproductive cough, some wheezing. No nausea, vomiting or diarrhea. No rash or itch. No fevers or shaking chills. Further review of systems is unremarkable. No edema. No urinary symptoms. LABORATORY DATA: Cultures as reviewed above. No other new labs today. CURRENT MEDICATIONS: Include ____, Solu-Medrol, Esidrix, DuoNeb, Mycamine, Mysoline, vitamin D, Tessalon Perles, Carafate, K-Dur, Singulair, Lopressor, Cardizem, Os-Lauri, Xanax, Rythmol, Prilosec, Synthroid, Seroquel, Eliquis, Levaquin, Robitussin. PHYSICAL EXAMINATION: VITAL SIGNS: Temperature 97, pulse 73, respirations 18, BP 133/91. GENERAL: A 57-year-old female, in no acute distress. HEAD, EYES, EARS, NOSE AND THROAT: Normocephalic. No thrush. She is hoarse. NECK: No cervical lymphadenopathy. LUNGS: Diminished with few rhonchi bilaterally. Respirations even and unlabored. HEART: Regular rhythm. No murmur appreciated. ABDOMEN: Soft, nondistended. EXTREMITIES: No edema, deformity or cyanosis. SKIN: Warm, dry, free of rashes. ASSESSMENT: Fungemia with budding yeast as well as acute chronic obstructive pulmonary disease exacerbation. PLAN: She is to continue Levaquin as well as continue Mycamine, await a beta D glucan assay and urine for histoplasma antigen. We will follow up on her cultures. Case discussed with Dr. Valdemar Martinez. KERRY WINSTON CNP [place], [place] PROGRESS NOTE NAME: SANDRA CHRISTOPHER UNIT #: [id number] ROOM: 505 DOCTOR: CATRACHITO COLLINS,OCTOBER BIRTHDATE: [birth year] VALDEMAR MARTINEZ MD CM:PNKUMAR [phone] CATRACHITO COLLINS 08/03/17 000 interface
--- NOTE | ~2017-07-29 | PROC NOTE ---
[place], [place] PROCEDURE NOTE NAME: SANDRA CHRISTOPHER UNIT #: [id number] ROOM: 525 DOCTOR: PATRICIA SOLANO MD,MARTY BIRTHDATE: [birth year] DOS: 07/31/2017 PREOPERATIVE DIAGNOSES: Severe nonresolving cough that had been noted for this patient. Current admission with ongoing exacerbation of obstructive lung disease. POSTOPERATIVE DIAGNOSES: Removal of multiple moderate plugging of the mucus of endobronchial tree bilaterally. FINDINGS: Acute tracheobronchitis. PROCEDURE DESCRIPTION: Informed consent was obtained for the patient. The patient brought to the OR and placed in supine position. Conscious sedation administered by the Anesthesia Department. After achieving proper sedation, airway introduced into the mouth. Bronchoscope advanced to the airway into laryngeal area. Epiglottis and vocal cords were seen. Bronchoscope entered vocal cord and tracheal lumen. Tracheal lumen was noted with moderate amount of mucoid secretion, which was suctioned out with the help of normal saline wash. Right upper, right middle, left upper, lingular lower lobe bronchi were all examined. All the endobronchial tree were noted with moderate thick plugs of mucus of the patient in the endobronchial tree bilaterally, suctioned out with the help of normal saline wash, sent for cultures. Postoperative findings will be discussed with the patient once the patient recovered the effects of acute sedation. MARTY GOMEZ MD CM:PROCNOTE:PROCEDURE NOTE [id number] MARTY SOLANO MD
--- NOTE | ~2017-07-29 | PR ---
[place], [place] PROGRESS NOTE NAME: SANDRA CHRISTOPHER UNIT #: [id number] ROOM: 505 DOCTOR: PATRICIA SOLANO MD,MARTY BIRTHDATE: [birth year] DOS: 08/05/2017 SUBJECTIVE: The patient was noted comfortable at this time without any acute distress. She has not been noted with any symptoms of chest pain or hemoptysis. The patient was still awaiting for clearing from the Infectious Disease Service prior to home discharge. OBJECTIVE: VITAL SIGNS: For the patient, which was recorded showed the temperature of the patient noted as normal. The respiratory rate of the patient recorded as 18. Heart rate of 66, blood pressure 140/88. HEENT: Examination shows no acute change. NECK: Supple. CARDIOVASCULAR: S1, S2 is audible. LUNGS: Noted without any wheezing or crackles at the present time. ABDOMEN: Soft, nontender. EXTREMITIES: Without any acute edema. IMPRESSION: The patient was noted comfortable at this time, sitting on the bed, continued to show progressive resolution improvement in respiratory symptoms as well. Parris albicans isolation from the blood culture, possible contamination has been considered. Infectious Disease consulted, pending some test results of the patient related to the yeast infection. PLAN OF MANAGEMENT: The patient could be discharged home once cleared from the Infectious Disease Services. Medication as necessary for the patient for the long-term management of bronchial asthma has been already sent to the pharmacy. She will receive the tapering dose of prednisone. Other supportive therapy, plan of management as well. Usual care. MARTY GOMEZ MD CM:PNTRANS [phone] MARTY SOLANO MD 08/12/17 0841 interface
[2017-07-29 17:29] VITALS: BP 121/75
[2017-07-29 18:12] LABS: BASO % 0.3 % (0.0-1.0); EOS # 0.1 10*3/uL (0.0-0.4); EOS % 0.8 % (1.0-4.0); HEMATOCRIT 37.5 % (37.0-47.0); HEMOGLOBIN 12.7 g/dl (12.0-16.0); LYMPH # 1.1 10*3/uL (1.3-4.4); LYMPH % 11.3 % (27.0-41.0); MEAN CELL VOLUME 89.3 fl (81.0-99.0); MEAN CORPUSCULAR HGB 30.2 pg (27.0-31.0); MEAN CORPUSCULAR HGB CONC 33.9 g/dl (33.0-37.0); MONO # 0.6 10*3/uL (0.1-1.0); MONO % 6.4 % (3.0-9.0); NEUT % 80.7 % (47.0-73.0); PLATELET COUNT AUTOMATED 324 10*3/uL (130-400); RED CELL DISTRI WIDTH 12.8 % (0-14.5); WHITE BLOOD COUNT 9.9 10*3/uL (4.8-10.8)
[2017-07-29 18:29] LABS: ALBUMIN 3.2 gm/dl (3.1-4.5); ALKALINE PHOSPHATASE 82 U/L (45-117); BUN 15 mg/dl (7-24); CHLORIDE 105 mmol/L (98-107); CREATININE 1.36 mg/dL (0.55-1.02); POTASSIUM 3.7 mmol/L (3.5-5.1); SGOT/AST 22 IU/L (3-35); SGPT/ALT 24 U/L (12-78); SODIUM 139 mmol/L (136-145); TOTAL PROTEIN 7.4 gm/dL (6.4-8.2)
[2017-07-29 18:30] LABS: TROPONIN I < 0.015 ng/ml (<0.045)
[2017-07-29 18:42] LABS: ACT PARTIAL THROMBO TIME 29.9 SECONDS (20.8-31.5)
[2017-07-29 19:02] VITALS: BP 122/81
[2017-07-29 19:30] VITALS: BP 124/74
[2017-07-29 19:39] VITALS: BP 124/74
[2017-07-29] MEDS ORDERED: SEROQUEL25 MG PO (21:03)
[2017-07-29] MEDS ORDERED: K-TAB10 MEQ PO (21:05)
[2017-07-29] MEDS ORDERED: OMEPRAZOLE MAGN20 MG PO (21:06)
[2017-07-29] MEDS ORDERED: HYDR25T PO (21:09)
[2017-07-30] VITALS: BP 125/84
[2017-07-30] MEDS ORDERED: XANAX0.5 MG PO (05:16)
[2017-07-30 07:01] LABS: BASO % 0.1 % (0.0-1.0); HEMATOCRIT 34.6 % (37.0-47.0); HEMOGLOBIN 11.6 g/dl (12.0-16.0); LYMPH # 0.6 10*3/uL (1.3-4.4); LYMPH % 8.4 % (27.0-41.0); MEAN CELL VOLUME 87.8 fl (81.0-99.0); MEAN CORPUSCULAR HGB 29.4 pg (27.0-31.0); MEAN CORPUSCULAR HGB CONC 33.5 g/dl (33.0-37.0); MONO # 0.2 10*3/uL (0.1-1.0); MONO % 2.4 % (3.0-9.0); NEUT # 6.7 10*3/uL (2.3-7.9); NEUT % 88.4 % (47.0-73.0); PLATELET COUNT AUTOMATED 307 10*3/uL (130-400); RED BLOOD COUNT 3.94 10*6/uL (4.10-5.10); RED CELL DISTRI WIDTH 12.6 % (0-14.5); WHITE BLOOD COUNT 7.5 10*3/uL (4.8-10.8)
[2017-07-30 07:35] LABS: ALKALINE PHOSPHATASE 79 U/L (45-117); BUN 14 mg/dl (7-24); CHLORIDE 104 mmol/L (98-107); CREATININE 1.07 mg/dL (0.55-1.02); HDL CHOLESTEROL 64 mg/dl (40-60); PHOSPHOROUS 3.8 mg/dL (2.5-4.9); POTASSIUM 3.6 mmol/L (3.5-5.1); SGOT/AST 19 IU/L (3-35); SGPT/ALT 24 U/L (12-78); SODIUM 136 mmol/L (136-145); TOTAL PROTEIN 7.2 gm/dL (6.4-8.2); TRIGLYCERIDES 51 mg/dl (<150); VLDL CHOLESTEROL 10 mg/dL (6-40)
[2017-07-30 07:41] LABS: CHOLESTEROL 140 mg/dL (<200); LDL CHOLESTEROL 66 mg/dL (9-159)
[2017-07-30 08:00] VITALS: BP 120/76
[2017-07-30 08:18] LABS: VITAMIN D, 25-HYDROXY 15.1 ng/mL (30-100)
[2017-07-30 12:00] VITALS: BP 144/87
[2017-07-30 16:00] VITALS: BP 124/73
[2017-07-30 20:00] VITALS: BP 135/86
[2017-07-31] VITALS (9 sets, daily range): BP systolic 105–151; BP diastolic 67–106
[2017-07-31 07:40] LABS: BASO % 0.1 % (0.0-1.0); HEMATOCRIT 33.6 % (37.0-47.0); HEMOGLOBIN 11.5 g/dl (12.0-16.0); LYMPH # 0.9 10*3/uL (1.3-4.4); LYMPH % 6.7 % (27.0-41.0); MEAN CELL VOLUME 88.7 fl (81.0-99.0); MEAN CORPUSCULAR HGB 30.3 pg (27.0-31.0); MEAN CORPUSCULAR HGB CONC 34.2 g/dl (33.0-37.0); MEAN PLATELET VOLUME 10.1 fl (9.6-12.3); MONO # 0.5 10*3/uL (0.1-1.0); MONO % 3.7 % (3.0-9.0); NEUT # 12.1 10*3/uL (2.3-7.9); NEUT % 88.8 % (47.0-73.0); PLATELET COUNT AUTOMATED 363 10*3/uL (130-400); RED BLOOD COUNT 3.79 10*6/uL (4.10-5.10); RED CELL DISTRI WIDTH 12.9 % (0-14.5); WHITE BLOOD COUNT 13.6 10*3/uL (4.8-10.8)
[2017-07-31 08:05] LABS: ALBUMIN 2.9 gm/dl (3.1-4.5); CREATININE 1.22 mg/dL (0.55-1.02); TOTAL PROTEIN 6.9 gm/dL (6.4-8.2)
[2017-08-01] VITALS: BP 121/82
[2017-08-01 08:00] VITALS: BP 134/82
[2017-08-01 12:00] VITALS: BP 132/82
[2017-08-01 14:10] LABS: ACID FAST SMEAR Negative (.); ACID FAST SPEC PROCESSING Concentration (.)
[2017-08-01 16:00] VITALS: BP 147/93
[2017-08-01 20:00] VITALS: BP 135/86
[2017-08-02] VITALS: BP 135/86
[2017-08-02 06:51] LABS: HEMATOCRIT 34.3 % (37.0-47.0); HEMOGLOBIN 11.7 g/dl (12.0-16.0); MEAN CELL VOLUME 88.4 fl (81.0-99.0); MEAN CORPUSCULAR HGB 30.2 pg (27.0-31.0); MEAN CORPUSCULAR HGB CONC 34.1 g/dl (33.0-37.0); MEAN PLATELET VOLUME 9.5 fl (9.6-12.3); PLATELET COUNT AUTOMATED 410 10*3/uL (130-400); RED BLOOD COUNT 3.88 10*6/uL (4.10-5.10); RED CELL DISTRI WIDTH 12.9 % (0-14.5); WHITE BLOOD COUNT 11.1 10*3/uL (4.8-10.8)
[2017-08-02 07:02] LABS: CREATININE 1.17 mg/dL (0.55-1.02); POTASSIUM 4.1 mmol/L (3.5-5.1)
[2017-08-02 07:26] LABS: PLATELET SUFFICIENCY NORMAL (NORMAL); TOTAL CELLS COUNTED 100 #CELLS
[2017-08-02 08:00] VITALS: BP 158/88
[2017-08-02 12:00] VITALS: BP 132/88
[2017-08-02 16:00] VITALS: BP 125/92
[2017-08-02 20:00] VITALS: BP 154/100
[2017-08-03] VITALS: BP 130/90
[2017-08-03 08:00] VITALS: BP 156/98
[2017-08-03 16:00] VITALS: BP 133/91
[2017-08-03 20:00] VITALS: BP 148/104
[2017-08-04] VITALS: BP 136/81
[2017-08-04 07:00] LABS: HEMATOCRIT 37.3 % (37.0-47.0); HEMOGLOBIN 12.6 g/dl (12.0-16.0); MEAN CELL VOLUME 87.1 fl (81.0-99.0); MEAN CORPUSCULAR HGB 29.4 pg (27.0-31.0); MEAN CORPUSCULAR HGB CONC 33.8 g/dl (33.0-37.0); MEAN PLATELET VOLUME 9.5 fl (9.6-12.3); PLATELET COUNT AUTOMATED 432 10*3/uL (130-400); RED BLOOD COUNT 4.28 10*6/uL (4.10-5.10); RED CELL DISTRI WIDTH 12.8 % (0-14.5); WHITE BLOOD COUNT 12.1 10*3/uL (4.8-10.8)
[2017-08-04 07:16] LABS: BUN 27 mg/dl (7-24); CHLORIDE 102 mmol/L (98-107); CREATININE 1.09 mg/dL (0.55-1.02); POTASSIUM 3.9 mmol/L (3.5-5.1); SODIUM 140 mmol/L (136-145)
[2017-08-04 07:31] LABS: ATYPICAL LYMPHS 1 % (0-0); BURR CELLS MODERATE; PLATELET SUFFICIENCY HIGH (NORMAL); TOTAL CELLS COUNTED 100 #CELLS
[2017-08-04 08:00] VITALS: BP 152/84
[2017-08-04 12:00] VITALS: BP 138/102
[2017-08-04 16:00] VITALS: BP 133/88
[2017-08-04 20:00] VITALS: BP 130/83
[2017-08-05] VITALS: BP 135/90
[2017-08-05 06:59] LABS: HEMATOCRIT 37.6 % (37.0-47.0); HEMOGLOBIN 12.8 g/dl (12.0-16.0); MEAN CELL VOLUME 87.9 fl (81.0-99.0); MEAN CORPUSCULAR HGB 29.9 pg (27.0-31.0); MEAN PLATELET VOLUME 9.3 fl (9.6-12.3); PLATELET COUNT AUTOMATED 428 10*3/uL (130-400); RED BLOOD COUNT 4.28 10*6/uL (4.10-5.10); WHITE BLOOD COUNT 13.2 10*3/uL (4.8-10.8)
[2017-08-05 07:22] LABS: CREATININE 1.15 mg/dL (0.55-1.02); POTASSIUM 3.9 mmol/L (3.5-5.1)
[2017-08-05 07:48] LABS: PLATELET SUFFICIENCY HIGH (NORMAL); TOTAL CELLS COUNTED 100 #CELLS
[2017-08-05 08:00] VITALS: BP 140/88
[2017-08-05 12:00] VITALS: BP 144/78
[2017-08-05] MEDS ORDERED: MONTELUKAST SOD10 MG PO (15:34)
[2017-08-05] MEDS ORDERED: ARNUITY ELLIP200 MCG INH (15:34)
[2017-08-05] MEDS ORDERED: DOXYCYCLINE100 M3 PO (15:34)
[2017-08-05] MEDS ORDERED: VITAMIN D-32000 UNI1 PO (15:34)
[2017-08-05] MEDS ORDERED: PREDNISONE10 MG PO (15:34)
[2017-08-05] MEDS ORDERED: PROAIR HFA8.5 GM INH (16:42)
[2017-08-08 15:08] LABS: RESULT 1 Candida pelliculosa (.)
[2017-08-11 17:05] LABS: AMPHOTERICIN B MIC 0.25 ug/mL (.); CASPOFUNGIN MIC 0.03 ug/mL (.); FLUCONAZOLE MIC 4.0 ug/mL (.); FLUCYTOSINE MIC 0.06 ug/mL (.); ITRACONAZOLE MIC 0.12 ug/mL (.); KETOCONAZOLE MIC 0.12 ug/mL (.); VORICONAZOLE MIC 0.12 ug/mL (.); YEAST ID Candida pelliculosa (.)
== END 2017-08-05 17:01 | disposition home or self-care (01) | DRG 871 ==
LOC: ED 17:25 → EDHOLD 18:43 → 5E 18:43
PROVIDERS: Internal Medicine; Internal Medicine Critical Care Medicine; Internal Medicine Hospice and Palliative Medicine; Nurse Practitioner Family
PROC: 0BC98ZZ Extirpation of Matter from Lingula Bronchus, Via Natural or Artificial Opening Endoscopic (ICD-10-PCS; principal; 2017-07-31)
PROC: 0BC48ZZ Extirpation of Matter from Right Upper Lobe Bronchus, Via Natural or Artificial Opening Endoscopic (ICD-10-PCS; 2017-07-31)
PROC: 0BC88ZZ Extirpation of Matter from Left Upper Lobe Bronchus, Via Natural or Artificial Opening Endoscopic (ICD-10-PCS; 2017-07-31)
PROC: 0BC58ZZ Extirpation of Matter from Right Middle Lobe Bronchus, Via Natural or Artificial Opening Endoscopic (ICD-10-PCS; 2017-07-31)
PROC: 0BC38ZZ Extirpation of Matter from Right Main Bronchus, Via Natural or Artificial Opening Endoscopic (ICD-10-PCS; 2017-07-31)
PROC: 0BC78ZZ Extirpation of Matter from Left Main Bronchus, Via Natural or Artificial Opening Endoscopic (ICD-10-PCS; 2017-07-31)
PROC: 0BC68ZZ Extirpation of Matter from Right Lower Lobe Bronchus, Via Natural or Artificial Opening Endoscopic (ICD-10-PCS; 2017-07-31)
PROC: 0BCB8ZZ Extirpation of Matter from Left Lower Lobe Bronchus, Via Natural or Artificial Opening Endoscopic (ICD-10-PCS; 2017-07-31)
PROC: 0BC18ZZ Extirpation of Matter from Trachea, Via Natural or Artificial Opening Endoscopic (ICD-10-PCS; 2017-07-31)
DX: A41.9 Sepsis, unspecified organism (principal); J18.9 Pneumonia, unspecified organism; N17.0 Acute kidney failure with tubular necrosis; T17.890A Other foreign object in other parts of respiratory tract causing asphyxiation, initial encounter; E44.0 Moderate protein-calorie malnutrition; B49 Unspecified mycosis; D68.59 Other primary thrombophilia; J44.1 Chronic obstructive pulmonary disease with (acute) exacerbation; J44.0 Chronic obstructive pulmonary disease with (acute) lower respiratory infection; J98.11 Atelectasis; J45.41 Moderate persistent asthma with (acute) exacerbation; I48.0 Paroxysmal atrial fibrillation; N18.3 Chronic kidney disease, stage 3 (moderate); I44.0 Atrioventricular block, first degree; K21.9 Gastro-esophageal reflux disease without esophagitis; M19.90 Unspecified osteoarthritis, unspecified site; F32.9 Major depressive disorder, single episode, unspecified; F41.1 Generalized anxiety disorder; I12.9 Hypertensive chronic kidney disease with stage 1 through stage 4 chronic kidney disease, or unspecified chronic kidney disease; D72.810 Lymphocytopenia; R65.20 Severe sepsis without septic shock; R73.9 Hyperglycemia, unspecified; E66.09 Other obesity due to excess calories; E89.0 Postprocedural hypothyroidism; F34.1 Dysthymic disorder; F41.8 Other specified anxiety disorders; G25.81 Restless legs syndrome; E20.9 Hypoparathyroidism, unspecified; J20.9 Acute bronchitis, unspecified; X58.XXXA Exposure to other specified factors, initial encounter; E55.9 Vitamin D deficiency, unspecified; Z83.3 Family history of diabetes mellitus; Z82.49 Family history of ischemic heart disease and other diseases of the circulatory system; Z80.1 Family history of malignant neoplasm of trachea, bronchus and lung; Z88.2 Allergy status to sulfonamides; Z88.8 Allergy status to other drugs, medicaments and biological substances; Z79.899 Other long term (current) drug therapy; Z68.32 Body mass index [BMI] 32.0-32.9, adult; Y93.89 Activity, other specified; Y92.89 Other specified places as the place of occurrence of the external cause; Y99.8 Other external cause status

== ENCOUNTER 2017-09-17 17:25 | Emergency (ER) | payer MEDICARE, MEDICAID ==
[~2017-09-17] VITALS: Ht 175.2 cm; Wt 97.1 kg
[~2017-09-17 17:25] MED LIST changes: +ARNUITY ELLIP200 MCG INH; +K-TAB10 MEQ PO; +MONTELUKAST SOD10 MG PO; +OMEPRAZOLE MAGN20 MG PO; +SEROQUEL25 MG PO; +VITAMIN D-32000 UNI1 PO
[2017-09-17 17:47] VITALS: BP 130/79
[2017-09-17] MEDS ORDERED: AMOXICILLIN500 M2 PO (18:25)
== END 2017-09-17 18:32 | disposition home or self-care (01) ==
LOC: ED 17:25
DX: H66.93 Otitis media, unspecified, bilateral (principal); J02.9 Acute pharyngitis, unspecified; I12.9 Hypertensive chronic kidney disease with stage 1 through stage 4 chronic kidney disease, or unspecified chronic kidney disease; N18.3 Chronic kidney disease, stage 3 (moderate); I10 Essential (primary) hypertension; J44.9 Chronic obstructive pulmonary disease, unspecified; E03.9 Hypothyroidism, unspecified; K21.9 Gastro-esophageal reflux disease without esophagitis; M19.90 Unspecified osteoarthritis, unspecified site; Z88.2 Allergy status to sulfonamides; Z88.8 Allergy status to other drugs, medicaments and biological substances; Z79.899 Other long term (current) drug therapy

== ENCOUNTER 2017-11-09 10:13 | Emergency (ER) | payer MEDICARE, MEDICAID ==
[~2017-11-09] VITALS: Ht 175.2 cm; Wt 102.1 kg
[~2017-11-09 10:13] MED LIST changes: +AMOXICILLIN500 M2 PO
[2017-11-09 10:16] VITALS: BP 130/94
[2017-11-09] MEDS ORDERED: PREDNISONE10 MG PO (10:17)
== END 2017-11-09 11:44 | disposition home or self-care (01) ==
LOC: ED 10:13
DX: R20.2 Paresthesia of skin (principal); J44.1 Chronic obstructive pulmonary disease with (acute) exacerbation; I12.9 Hypertensive chronic kidney disease with stage 1 through stage 4 chronic kidney disease, or unspecified chronic kidney disease; N18.3 Chronic kidney disease, stage 3 (moderate); K21.9 Gastro-esophageal reflux disease without esophagitis; R73.9 Hyperglycemia, unspecified; J45.901 Unspecified asthma with (acute) exacerbation; E03.9 Hypothyroidism, unspecified; Z88.2 Allergy status to sulfonamides; Z88.8 Allergy status to other drugs, medicaments and biological substances; Z79.899 Other long term (current) drug therapy

== ENCOUNTER 2017-11-28 12:57 | Emergency (ER) | payer MEDICARE, MEDICAID ==
[~2017-11-28] VITALS: Ht 175.2 cm; Wt 106.6 kg
[2017-11-28 13:04] VITALS: BP 153/103
[2017-11-28] MEDS ORDERED: NEURONTIN300 MG PO (13:06)
[2017-11-28] MEDS ORDERED: NORCO 5-325 TA1 EACH PO (13:06)
== END 2017-11-28 14:06 | disposition home or self-care (01) ==
LOC: ED 12:57
DX: M79.662 Pain in left lower leg (principal); M19.90 Unspecified osteoarthritis, unspecified site; J44.9 Chronic obstructive pulmonary disease, unspecified; I12.9 Hypertensive chronic kidney disease with stage 1 through stage 4 chronic kidney disease, or unspecified chronic kidney disease; N18.3 Chronic kidney disease, stage 3 (moderate); I48.91 Unspecified atrial fibrillation; K21.9 Gastro-esophageal reflux disease without esophagitis; E03.9 Hypothyroidism, unspecified; E66.9 Obesity, unspecified; Z98.890 Other specified postprocedural states; Z79.899 Other long term (current) drug therapy; Z88.2 Allergy status to sulfonamides; Z88.8 Allergy status to other drugs, medicaments and biological substances

== ENCOUNTER → 2018-11-11 | Outpatient (CLI) | payer MEDICARE, MEDICAID ==
[~2018-11-11] MED LIST changes: +NEURONTIN300 MG PO; +NORCO 5-325 TA1 EACH PO
== END | disposition home or self-care (01) ==
LOC: US 13:02
DX: R22.42 Localized swelling, mass and lump, left lower limb (principal); I10 Essential (primary) hypertension; R09.89 Other specified symptoms and signs involving the circulatory and respiratory systems

== ENCOUNTER 2019-07-29 13:29 | Inpatient (IN) | payer OTHER, MEDICAID ==
[~2019-07-29] VITALS: Ht 175.2 cm; Wt 109.6 kg
[2019-07-29 13:41] VITALS: BP 96/62
[2019-07-29 14:00] LABS: BASO % 0.3 % (0.0-1.0); EOS % 0.2 % (1.0-4.0); HEMATOCRIT 35.6 % (37.0-47.0); HEMOGLOBIN 11.1 g/dl (12.0-16.0); LYMPH # 0.9 10*3/uL (1.3-4.4); LYMPH % 6.7 % (27.0-41.0); MEAN CELL VOLUME 93.2 fl (81.0-99.0); MEAN CORPUSCULAR HGB 29.1 pg (27.0-31.0); MEAN CORPUSCULAR HGB CONC 31.2 g/dl (33.0-37.0); MEAN PLATELET VOLUME 10.7 fl (9.6-12.3); MONO # 0.5 10*3/uL (0.1-1.0); MONO % 3.9 % (3.0-9.0); NEUT # 11.7 10*3/uL (2.3-7.9); NEUT % 88.4 % (47.0-73.0); PLATELET COUNT AUTOMATED 304 10*3/uL (130-400); RED BLOOD COUNT 3.82 10*6/uL (4.10-5.10); RED CELL DISTRI WIDTH 14.4 % (0-14.5); WHITE BLOOD COUNT 13.2 10*3/uL (4.8-10.8)
[2019-07-29 14:13] LABS: ACT PARTIAL THROMBO TIME 27.9 SECONDS (20.0-32.1)
[2019-07-29 14:22] LABS: ALBUMIN 3.7 gm/dl (3.1-4.5); ALKALINE PHOSPHATASE 86 U/L (45-117); BUN 27 mg/dl (7-24); CHLORIDE 106 mmol/L (98-107); CREATININE 1.62 mg/dL (0.55-1.02); POTASSIUM 3.4 mmol/L (3.5-5.1); SGOT/AST 31 IU/L (3-35); SGPT/ALT 37 U/L (12-78); SODIUM 143 mmol/L (136-145); TOTAL PROTEIN 7.2 gm/dL (6.4-8.2)
[2019-07-29 14:29] LABS: TROPONIN I < 0.015 ng/ml (<0.045)
[2019-07-29 14:30] VITALS: BP 99/68
[2019-07-29 17:10] VITALS: BP 123/71
--- NOTE | 2019-07-29 17:21 | NUR ---
[facility] CALLED AT THIS TIME REGARDING MED LIST. WAITING FOR FAXED LIST.
--- NOTE | 2019-07-29 17:27 | NUR ---
MSTime: 1727 A 59 year old FEMALE admitted to 5E under services of SANTANA CASTILLO DO, Pt. arrived via bed from ER. Chief complaint: DIZZINESS, SOB, SLURRING WORDS.. D[place] COX.
[2019-07-29 17:44] VITALS: BP 129/85
--- NOTE | 2019-07-29 17:44 | NUR ---
REPORT GIVEN TO DALLAS ODELL AT BEDSIDE, NO CHANGE IN PATIENT STATUS.
[2019-07-29] MEDS ORDERED: MEDROL DOSEPAK4 MG PO (17:56)
[2019-07-29] MEDS ORDERED: BUPROPION HCL150 M2 PO (17:57)
[2019-07-29] MEDS ORDERED: NEURONTIN100 MG PO (17:58)
[2019-07-29] MEDS ORDERED: FLONASE ALLERG9.9 ML NAS (17:59)
[2019-07-29] MEDS ORDERED: MIRAPEX0.75 MG PO (18:00)
[2019-07-29] MEDS ORDERED: HYDROCHLOROTHIA25 M1 PO (18:02)
--- NOTE | 2019-07-29 18:08 | NUR ---
MED REC UPDATED PER POLICY
--- NOTE | 2019-07-29 18:48 | NUR ---
IV BOLUS INITIATED AT THIS TIME PER ORDER.
[2019-07-29 20:00] VITALS: BP 110/78
--- NOTE | 2019-07-29 20:07 | NUR ---
PRN TYLENOL AND XANAX GIVEN FOR PT COMPLAINTS OF ANXIETY AND A SLIGHT HEADACHE. #2 BOLUS HUNG AT THIS TIME. O2 APPLIED FOR COMFORT PATIENT STATES SHE IS HAVING A HARD TIME BREATHING. CALL LIGHT WITHIN REACH, WILL MONITOR
--- NOTE | 2019-07-29 21:25 | NUR ---
PRN TYLENOL AND XANAX EFFECTIVE PER PT
[2019-07-30] VITALS: BP 105/73
--- NOTE | 2019-07-30 00:43 | NUR ---
PATIENT SLEEPING. BREATHING IS EASY AND REGULAR. NO DISTRESS NOTED. CALL LIGHT WITHIN REACH
--- NOTE | 2019-07-30 02:26 | NUR ---
24 HR chart check completed.
--- NOTE | 2019-07-30 02:27 | NUR ---
PATIENT CONTINUES TO SLEEP. NO DISTRESS NOTED
--- NOTE | 2019-07-30 05:24 | NUR ---
SPOKE WITH DR. HAGER AT THIS TIME. PATIENT COMPLAINING OF A SORE THROAT FROM HER HACKING COUGH. ORDER RECIEVED FOR A ONE TIME DOSE OF CEPACOL.
[2019-07-30 06:31] LABS: HEMATOCRIT 35.1 % (37.0-47.0); HEMOGLOBIN 10.9 g/dl (12.0-16.0); MEAN CELL VOLUME 91.6 fl (81.0-99.0); MEAN CORPUSCULAR HGB 28.5 pg (27.0-31.0); MEAN CORPUSCULAR HGB CONC 31.1 g/dl (33.0-37.0); MEAN PLATELET VOLUME 10.7 fl (9.6-12.3); PLATELET COUNT AUTOMATED 287 10*3/uL (130-400); RED BLOOD COUNT 3.83 10*6/uL (4.10-5.10); RED CELL DISTRI WIDTH 14.2 % (0-14.5); WHITE BLOOD COUNT 10.5 10*3/uL (4.8-10.8)
[2019-07-30 06:50] LABS: ALBUMIN 3.6 gm/dl (3.1-4.5); CREATININE 1.34 mg/dL (0.55-1.02); PHOSPHOROUS 6.4 mg/dL (2.5-4.9); POTASSIUM 3.6 mmol/L (3.5-5.1)
[2019-07-30 06:55] LABS: THYROID STIM HORMONE (HS) 4.8 uIU/ml (0.358-4.75)
--- NOTE | 2019-07-30 07:00 | NUR ---
DR. HAGER NOTIFIED OF PATIENT CALCIUM LEVEL. NOTIFIED HIM THAT PATIENT HAS SEEN DR. COSTA IN THE PAST FOR CHRONICALLY LOW CALCIUM AND STAGE 3 CKD. HE STATED HE WOULD NOTIFY THE DAY TEAM
[2019-07-30 07:06] LABS: PLATELET SUFFICIENCY NORMAL (NORMAL); TOTAL CELLS COUNTED 100 #CELLS
[2019-07-30 08:00] VITALS: BP 108/86
--- NOTE | 2019-07-30 08:44 | NUR ---
MRI FORM FILLED OUT AT THIS TIME PER POLICY.
--- NOTE | 2019-07-30 09:00 | NUR ---
Replacer in to talk to patient. Patient states lives at home with daughter. There are few steps in the home. Physician: susan h[place] Pharmacy: [facility] Home health services: none Patient's level of ADLs: INDEPENDENT Patient has working utilities: all working DME: home oxygen, cane from [facility] Follow-up physician's appointment after d/c: will be made by hospitalist nurse director upon discharge Does patient want to access PORTAL?: no Discharge plan discussed with patient, she states she lives at home with daughter, she is independent in adls and ambulation, she states she will return home when medically stable and denies any home needs, case management will follow. JORGE NEWSOME
[2019-07-30 10:04] LABS: VITAMIN D, 25-HYDROXY 14.4 ng/mL (30-100)
[2019-07-30 12:00] VITALS: BP 108/71
--- NOTE | 2019-07-30 13:23 | NUR ---
PT REQUESTS FLU VACCINE ON DISCHARGE.
--- NOTE | 2019-07-30 15:41 | NUR ---
NOTIFIED OF CONSULT.
[2019-07-30 16:00] VITALS: BP 105/85
--- NOTE | 2019-07-30 16:23 | NUR ---
PT MEDICATED WITH PO TYLENOL PER PRN ORDER FOR C/O HEADACHE. WILL MONITOR EFFECTIVENESS.
--- NOTE | 2019-07-30 17:41 | NUR ---
TYLENOL RELIEVING HEADACHE PER PT.
--- NOTE | 2019-07-30 18:10 | NUR ---
TESSALON PERLE GIVEN PER PRN ORDER FOR HACKY COUGH. WILL MONITOR EFFECTIVENESS. RESPIRATORY PAGED AT THIS TIME FOR BREATHING TREATMENT.
--- NOTE | 2019-07-30 18:45 | NUR ---
PT GIVEN PO CEPACOL PER PRN ORDER FOR C/O HACKY COUGH. WILL MONITOR EFFECTIVENESS.
[2019-07-30 20:00] VITALS: BP 105/66
--- NOTE | 2019-07-30 20:23 | NUR ---
24 HR chart check completed.
--- NOTE | 2019-07-30 21:00 | NUR ---
SITTING UP IN BED. RESPIRATIONS EASY. LUNGS DIMINISHED WITH COARSE WHEEZES. PULSE OX 96% 2L. HARSH DRY NON-PROD COUGH. TRACE BLE EDEMA NOTED. CALL LIGHT WITHIN REACH. NO VOICED COMPLAINTS
--- NOTE | 2019-07-30 21:53 | NUR ---
MEDICATED WITH XANAX TO ASSIST WITH ANXIETY/REST. CALL LIGHT WITHIN REACH.
[2019-07-31] VITALS: BP 134/82; BP 134/97
--- NOTE | 2019-07-31 | NUR ---
MEDS EFFECTIVE. SLEEPING. RESPIRATIONS EASY. VSS. CALL LIGHT WITHIN REACH.
--- NOTE | 2019-07-31 05:56 | NUR ---
PROVIDED CEPACOL LOZENGE FOR COUGH
--- NOTE | 2019-07-31 06:00 | NUR ---
SLEPT THROUGHOUT NIGHT WITH NO DISTRESS NOTED. RESPIRATIONS EASY. O2 IN USE. CALL LIGHT WITHIN REACH. NO VOICED COMPLAINTS THIS SHIFT
[2019-07-31 06:19] LABS: HEMATOCRIT 35.6 % (37.0-47.0); HEMOGLOBIN 11.4 g/dl (12.0-16.0); MEAN CELL VOLUME 90.6 fl (81.0-99.0); MEAN PLATELET VOLUME 10.7 fl (9.6-12.3); PLATELET COUNT AUTOMATED 310 10*3/uL (130-400); RED BLOOD COUNT 3.93 10*6/uL (4.10-5.10); RED CELL DISTRI WIDTH 14.2 % (0-14.5); WHITE BLOOD COUNT 14.4 10*3/uL (4.8-10.8)
[2019-07-31 06:45] LABS: CREATININE 1.59 mg/dL (0.55-1.02); POTASSIUM 3.6 mmol/L (3.5-5.1)
[2019-07-31 06:50] LABS: PLATELET SUFFICIENCY NORMAL (NORMAL); TOTAL CELLS COUNTED 100 #CELLS
--- NOTE | 2019-07-31 06:50 | NUR ---
DR HAGER CONTACTED AND INFORMED OF CRITICAL CALCIUM. NO NEW ORDERS RECEIVED
--- NOTE | 2019-07-31 07:45 | NUR ---
Patient resting quietly with no c/o discomfort. Respirations easy and regular. Vital signs stable. No overt distress. SUNNY MATUTE
[2019-07-31 08:00] VITALS: BP 107/67
--- NOTE | 2019-07-31 09:00 | NUR ---
case management visits with patient, she states she will return home when medically stable and denies any home needs
[2019-07-31 12:00] VITALS: BP 110/64
[2019-07-31 12:06] LABS: ABG BASE EXCESS -2.8 mmol/L (-2.0-2.0); ARTERIAL BLOOD GAS PH 7.42 (7.35-7.45)
--- NOTE | 2019-07-31 12:38 | NUR ---
FLAMER SEALER DRIP MORPHINE RETURNED TO PHARMACY LEFT WITH 18.5 CC VERIFIED WITH REYNOLD ODELL
--- NOTE | 2019-07-31 13:31 | NUR ---
cepacol lozenger given per pt request
[2019-07-31 16:00] VITALS: BP 90/58
--- NOTE | 2019-07-31 16:17 | NUR ---
PT COMPLAINS OF H./A 11/21 PRN TYLENOL GIVEN
--- NOTE | 2019-07-31 19:30 | NUR ---
PT IS AWAKE AND SITTING UP IN BED AT THIS TIME. AUDIBLE EXPIRATORY WHEEZING NOTED WITH [facility] CHAPLAIN COUGH. 2L O2 IN USE. BED IS LOW, CALL LIGHT WITHIN REACH. WILL CONTINUE TO MONITOR.
[2019-07-31 20:00] VITALS: BP 140/76
--- NOTE | 2019-07-31 20:18 | NUR ---
24 HR CHART CHECK COMPLETE.
[2019-08-01] VITALS: BP 115/82
[2019-08-01 06:03] LABS: CREATININE 1.72 mg/dL (0.55-1.02); POTASSIUM 3.4 mmol/L (3.5-5.1)
[2019-08-01 06:06] LABS: HEMATOCRIT 34.2 % (37.0-47.0); HEMOGLOBIN 10.9 g/dl (12.0-16.0); MEAN CELL VOLUME 90.2 fl (81.0-99.0); MEAN CORPUSCULAR HGB 28.8 pg (27.0-31.0); MEAN CORPUSCULAR HGB CONC 31.9 g/dl (33.0-37.0); PLATELET COUNT AUTOMATED 301 10*3/uL (130-400); RED BLOOD COUNT 3.79 10*6/uL (4.10-5.10); RED CELL DISTRI WIDTH 14.5 % (0-14.5); WHITE BLOOD COUNT 13.2 10*3/uL (4.8-10.8)
[2019-08-01 06:53] LABS: PLATELET SUFFICIENCY NORMAL (NORMAL); TOTAL CELLS COUNTED 100 #CELLS
--- NOTE | 2019-08-01 07:30 | NUR ---
Patient resting quietly with no c/o discomfort. Respirations easy and regular. Vital signs stable. No overt distress. SUNNY MATUTE
[2019-08-01 08:00] VITALS: BP 126/87
--- NOTE | 2019-08-01 08:00 | NUR ---
PRN TESSALON PEARLS AND CEPACOL GIVEN PER PT COUGH
--- NOTE | 2019-08-01 08:58 | NUR ---
PT COMPLAIING OF RIB PAIN FROM COUGHING 01/21 PRN NORCO GIVEN
[2019-08-01 12:00] VITALS: BP 119/92
[2019-08-01 16:00] VITALS: BP 112/75
[2019-08-01 20:00] VITALS: BP 113/81
[2019-08-02] VITALS: BP 114/88
[2019-08-02 07:07] LABS: CREATININE 1.58 mg/dL (0.55-1.02); POTASSIUM 3.3 mmol/L (3.5-5.1)
[2019-08-02 07:12] LABS: HEMATOCRIT 36.1 % (37.0-47.0); HEMOGLOBIN 11.5 g/dl (12.0-16.0); MEAN CELL VOLUME 90.5 fl (81.0-99.0); MEAN CORPUSCULAR HGB 28.8 pg (27.0-31.0); MEAN CORPUSCULAR HGB CONC 31.9 g/dl (33.0-37.0); MEAN PLATELET VOLUME 11.3 fl (9.6-12.3); PLATELET COUNT AUTOMATED 307 10*3/uL (130-400); RED BLOOD COUNT 3.99 10*6/uL (4.10-5.10); RED CELL DISTRI WIDTH 14.4 % (0-14.5); WHITE BLOOD COUNT 12.2 10*3/uL (4.8-10.8)
[2019-08-02 07:45] LABS: TOTAL CELLS COUNTED 100 #CELLS
[2019-08-02 07:46] LABS: PLATELET SUFFICIENCY NORMAL (NORMAL)
[2019-08-02 08:00] VITALS: BP 121/91
[2019-08-02 12:00] VITALS: BP 105/73
[2019-08-02 16:00] VITALS: BP 127/81
--- NOTE | 2019-08-02 19:13 | NUR ---
24 HR CHART CHECK COMPLETE.
[2019-08-02 20:00] VITALS: BP 104/79
--- NOTE | 2019-08-02 21:50 | NUR ---
PT IS AWAKE AND RESTING IN BED AT THIS TIME. SHE STATES THAT SHE IS FEELING SOMEWHAT ANXIOUS ABOUT TOMORROWS PROCEDURE. SHE ALSO C/O A HEADACHE. PATIENT ADMINISTERED PRN TYLENOL AT THIS TIME. WILL MONITOR FOR EFFECTIVENESS.
[2019-08-03] VITALS (9 sets, daily range): BP systolic 104–141; BP diastolic 71–100
--- NOTE | 2019-08-03 09:00 | NUR ---
case management visits with patient, she will be having a bronch today, she will return home when medically stable and denies any home needs
--- NOTE | 2019-08-03 19:55 | NUR ---
24 HR chart check completed.
--- NOTE | 2019-08-03 20:00 | NUR ---
RESTING IN BED WATCHING TV. NO DISTRESS NOTED. RESPIRATIONS EASY. LUNGS DIMINISHED WITH I&E WHEEZES. PULSE OX 97% 2L. NON-PROD COUGH. CALL LIGHT WITHIN REACH. NO VOICED COMPLAINTS
--- NOTE | 2019-08-03 21:33 | NUR ---
MEDICATED WITH XANAX PER PRN ORDER TO ASSIST WITH ANXIETY. WILL MONITOR
--- NOTE | 2019-08-03 22:04 | NUR ---
REQUESTED AND RECEIVED TYLENOL PER PRN ORDER FOR COMPLAINTS OF JOINT PAIN RATING A 5. CALL LIGHT WITHIN REACH. WILL MONITOR
[2019-08-04] VITALS: BP 113/54
--- NOTE | 2019-08-04 | NUR ---
MEDS EFFECTIVE. SLEEPING. RESPIRATIONS EASY. VSS. CALL LIGHT WITHIN REACH
--- NOTE | 2019-08-04 05:25 | NUR ---
REQUESTED AND RECEIVED TYLENOL PER PRN ORDER FOR COMPLAINTS OF HEADACHE RATING A 5. CALL LIGHT WITHIN REACH. WILL MONITOR
[2019-08-04 06:23] LABS: ALBUMIN 3.3 gm/dl (3.1-4.5); CREATININE 1.24 mg/dL (0.55-1.02); PHOSPHOROUS 4.7 mg/dL (2.5-4.9)
--- NOTE | 2019-08-04 06:35 | NUR ---
CRITICAL CALCIUM 6.1, RESULTS CALLED TO DR HAGER
[2019-08-04 08:00] VITALS: BP 101/73
--- NOTE | 2019-08-04 08:50 | NUR ---
PT RESTING IN BED WITH HOB ELEVATED. RESP-EASY AND REGULAR. OXYGEN IN USE. NO C/O AT THIS TIME. CALL LIGHT IN REACH. SEE SHIFT ASSESSMENT.
--- NOTE | 2019-08-04 09:00 | NUR ---
case management visits with patient, she states she is hoping to go home in the next couple of days, she states she does not have home oxygen and will be tested for it prior to being discharged, discussed with her VNA and educated her on the services they provide, she was agreeable to this, given choice of companies she chose [facility], will send referral to [facility] for when patient is medically stable for discharge
[2019-08-04 12:00] VITALS: BP 127/85
--- NOTE | 2019-08-04 12:00 | NUR ---
RESTING IN BED. RESP-EASY AND REGULAR. NO C/O AT THIS TIME. CALL LIGHT IN REACH.
[2019-08-04 13:05] LABS: ACID FAST SPEC PROCESSING Concentration (.)
--- NOTE | 2019-08-04 15:33 | NUR ---
ASSESSMENT FOR HOME OXYGEN ROOM AIR AT REST: SPO2 96% HR 92 RR 20 BP 113/73 ROOM AIR WITH AMBULATION: SPO2 93-95% HR 104-110 ROOM AIR RECOVERY: SPO2 97% HR 110 RR 24 BP 122/85 PT. DID NOT REQUIRE SUPPLEMENTAL O2 AT REST OR DURING AMBULATION. RN NOTIFIED.
[2019-08-04 16:00] VITALS: BP 122/89
--- NOTE | 2019-08-04 19:27 | NUR ---
24 HR chart check completed.
[2019-08-04 20:00] VITALS: BP 120/88
--- NOTE | 2019-08-04 20:00 | NUR ---
RESTING IN BED WITH NO ACUTE DISTRESS NOTED. RESPIRATIONS EASY. LUNGS DIMINISHED WITH COARSE I&E WHEEZES. PULSE OX 100% RA. NON-PROD COUGH. CALL LIGHT WITHIN REACH. NO VOICED COMPLAINTS
--- NOTE | 2019-08-04 21:52 | NUR ---
REQUESTED AND RECEIVED TYLENOL AND XANAX PER PRN ORDER FOR COMPLAINTS OF GENERALIZED PAIN RATING A 5 AND ANXIETY. CALL LIGHT WITHIN REACH. WILL MONITOR FOR EFFECTIVENESS
--- NOTE | 2019-08-04 23:00 | NUR ---
MEDS APPEAR EFFECTIVE. AWAKE, BUT DROWSY. RESTING MORE COMFORTABLY. CALL LIGHT WITHIN REACH. NO FURTHER VOICED COMPLAINTS
[2019-08-05] VITALS: BP 121/84
--- NOTE | 2019-08-05 01:00 | NUR ---
MEDS EFFECTIVE. SLEEPING. CALL LIGHT WITHIN REACH
--- NOTE | 2019-08-05 05:35 | NUR ---
requested and received tylenol per prn order for complaints of generalized aches and pains rating a 5. call light within reach. will monitor
[2019-08-05 06:19] LABS: HEMATOCRIT 37.9 % (37.0-47.0); HEMOGLOBIN 11.9 g/dl (12.0-16.0); MEAN CELL VOLUME 93.3 fl (81.0-99.0); MEAN CORPUSCULAR HGB 29.3 pg (27.0-31.0); MEAN CORPUSCULAR HGB CONC 31.4 g/dl (33.0-37.0); MEAN PLATELET VOLUME 11.1 fl (9.6-12.3); PLATELET COUNT AUTOMATED 273 10*3/uL (130-400); RED BLOOD COUNT 4.06 10*6/uL (4.10-5.10); RED CELL DISTRI WIDTH 14.6 % (0-14.5); WHITE BLOOD COUNT 14.5 10*3/uL (4.8-10.8)
--- NOTE | 2019-08-05 06:30 | NUR ---
meds appear effective. resting with eyes closed. respirations easy. call light within reach
[2019-08-05 06:35] LABS: ALBUMIN 3.3 gm/dl (3.1-4.5); CREATININE 1.17 mg/dL (0.55-1.02); POTASSIUM 4.2 mmol/L (3.5-5.1); TOTAL PROTEIN 6.5 gm/dL (6.4-8.2)
--- NOTE | 2019-08-05 06:48 | NUR ---
dr monroy present on floor. informed of critical ca 6.3, yesterday 6.1
[2019-08-05 07:29] LABS: OVALOCYTES FEW; PLATELET SUFFICIENCY NORMAL (NORMAL); POLYCHROMASIA SLIGHT; TOTAL CELLS COUNTED 100 #CELLS
[2019-08-05 08:00] VITALS: BP 135/96
--- NOTE | 2019-08-05 08:30 | NUR ---
PT RESTING IN BED WITH EYES CLOSED. RESP-EASY AND REGULAR. TOLERATED ROUTINE MED WITH NO PROBLEM. CALL LIGHT IN REACH. SEE SHIFT ASSESSMENT.
--- NOTE | 2019-08-05 09:00 | NUR ---
case management visits with patient, she stated she would be discharged to home today, educated her that VNA would call her upon discharge and let her know when they would be starting their service, patient declined any VNA, stated her daughter is a nurse and can help her with whatever she needs, case management will follow
--- NOTE | 2019-08-05 09:20 | NUR ---
Occupational therapy orders received and OT screening completed on floor five. Per patient, she is being discharged home later today. She lives in a multi-level house, steps to enter, with her daughter. Per patient, she has been independently completing ADLs, transfers with the ww, and mobility with the ww within the room. Patient does not have any concerns about returning home. OT orders will be discharged at this time. Thank you for the referral. Jaene Tovar, OTR/L
--- NOTE | 2019-08-05 10:35 | NUR ---
PHYSICAL THERAPY Pt seen at the bedside states she is going home today, lives with dgtr has first floor setup 4 steps to ente w HR 10 steps in side with HR. States she has been ambulating in hallways w FWW and "doing well" uses cane vs fww at home after L THR 03/02. Main issue w c/o SOB/cough due to pneumonia presently not requiring any oxygen. Transfers Ind overall Amb in hallway 100 ft Mod Ind with fww oxygen level 93% after activity. Pt states "I feel fine to go home" Discussed doing steps but per pt she has "no concerns" and does not want to practice at this time. Daughter will be with her at home. Screen only at this time as pt up amb in room and hallway, she has no issues or concerns for discharge to home. Will discontinue PT at this time. Reanna Willard PT
--- NOTE | 2019-08-05 11:45 | NUR ---
TOLERATED ROUTINE MED WITH NO PROBLEM. NO C/O AT THIS TIME. CALL LIGHT IN REACH.
[2019-08-05 12:00] VITALS: BP 126/76
--- NOTE | 2019-08-05 13:20 | NUR ---
CALLED DR. CARVER MADE AWARE PT DIDN'T QUALIFY FOR HOME OXYGEN YESTERDAY.
[2019-08-05] MEDS ORDERED: AVPAK AZITHROM250 MG PO (13:22)
[2019-08-05] MEDS ORDERED: Vitamin D PO (13:22)
[2019-08-05] MEDS ORDERED: PREDNISONE10 MG PO (13:22)
[2019-08-05] MEDS ORDERED: Rocaltrol0.25 MCG PO (13:22)
--- NOTE | 2019-08-05 13:34 | NUR ---
Discharge instructions reviewed with patient/family. Patient receptive and verbalizes understanding. Follow-up care arranged. Written instructions given to patient/family. HEPLOCK REMOVED. PRESCRIPTIONS GIVEN. PT WAITING ON RIDE. STEPHANIE JAMISON
--- NOTE | 2019-08-05 14:44 | NUR ---
PT ESCORTED VIA WHEELCHAIR FOR DISCHARGE WITH VISITOR AT HER SIDE.
== END 2019-08-05 13:34 | disposition home or self-care (01) | DRG 871 ==
LOC: ED 13:29 → 5E 16:33 → EDHOLD 16:33 → 5E 17:10
PROVIDERS: Emergency Medicine; Family Medicine; Hospitalist; Internal Medicine; Internal Medicine Critical Care Medicine; Student in an Organized Health Care Education/Training Program; ADMIT Internal Medicine
PROC: 0B998ZZ Drainage of Lingula Bronchus, Via Natural or Artificial Opening Endoscopic (ICD-10-PCS; principal; 2019-08-03)
PROC: 0B968ZZ Drainage of Right Lower Lobe Bronchus, Via Natural or Artificial Opening Endoscopic (ICD-10-PCS; principal; 2019-08-03)
PROC: 0B9D8ZZ Drainage of Right Middle Lung Lobe, Via Natural or Artificial Opening Endoscopic (ICD-10-PCS; principal; 2019-08-03)
PROC: 0B9G8ZZ Drainage of Left Upper Lung Lobe, Via Natural or Artificial Opening Endoscopic (ICD-10-PCS; principal; 2019-08-03)
PROC: 0B928ZZ Drainage of Carina, Via Natural or Artificial Opening Endoscopic (ICD-10-PCS; principal; 2019-08-03)
PROC: 0B948ZZ Drainage of Right Upper Lobe Bronchus, Via Natural or Artificial Opening Endoscopic (ICD-10-PCS; principal; 2019-08-03)
DX: A41.9 Sepsis, unspecified organism (principal); J18.9 Pneumonia, unspecified organism; N17.0 Acute kidney failure with tubular necrosis; G93.41 Metabolic encephalopathy; J44.1 Chronic obstructive pulmonary disease with (acute) exacerbation; D68.59 Other primary thrombophilia; T17.590A Other foreign object in bronchus causing asphyxiation, initial encounter; J44.0 Chronic obstructive pulmonary disease with (acute) lower respiratory infection; J45.901 Unspecified asthma with (acute) exacerbation; J20.9 Acute bronchitis, unspecified; R65.20 Severe sepsis without septic shock; R07.89 Other chest pain; E83.51 Hypocalcemia; N18.3 Chronic kidney disease, stage 3 (moderate); D64.9 Anemia, unspecified; E87.6 Hypokalemia; K21.9 Gastro-esophageal reflux disease without esophagitis; F32.5 Major depressive disorder, single episode, in full remission; M19.90 Unspecified osteoarthritis, unspecified site; I12.9 Hypertensive chronic kidney disease with stage 1 through stage 4 chronic kidney disease, or unspecified chronic kidney disease; I48.0 Paroxysmal atrial fibrillation; E89.0 Postprocedural hypothyroidism; E66.09 Other obesity due to excess calories; F41.1 Generalized anxiety disorder; X58.XXXA Exposure to other specified factors, initial encounter; Z68.34 Body mass index [BMI] 34.0-34.9, adult; Y93.89 Activity, other specified; Z88.1 Allergy status to other antibiotic agents; Z88.8 Allergy status to other drugs, medicaments and biological substances; Z83.3 Family history of diabetes mellitus; Z82.49 Family history of ischemic heart disease and other diseases of the circulatory system; Z80.1 Family history of malignant neoplasm of trachea, bronchus and lung; Z79.899 Other long term (current) drug therapy

== ENCOUNTER → 2019-08-20 | Outpatient (CLI) | payer OTHER, MEDICAID ==
[~2019-08-20] MED LIST changes: +AVPAK AZITHROM250 MG PO; +BUPROPION HCL150 M2 PO; +FLONASE ALLERG9.9 ML NAS; +HYDROCHLOROTHIA25 M1 PO; +NEURONTIN100 MG PO; +Vitamin D PO
[2019-08-20 09:10] LABS: CREATININE 1.33 mg/dL (0.55-1.02); POTASSIUM 3.5 mmol/L (3.5-5.1)
== END | disposition home or self-care (01) ==
LOC: LAB 08:15
PROVIDERS: Internal Medicine
DX: E83.51 Hypocalcemia (principal)

== ENCOUNTER → 2020-02-25 | Outpatient (CLI) | payer OTHER, MEDICAID | END | disposition home or self-care (01) | LOC: RAD 09:12 | DX: M47.816 Spondylosis without myelopathy or radiculopathy, lumbar region (principal); M43.16 Spondylolisthesis, lumbar region; G95.89 Other specified diseases of spinal cord ==

== ENCOUNTER 2020-03-05 16:59 | Emergency (ER) | payer OTHER, MEDICAID ==
[~2020-03-05] VITALS: Ht 175.2 cm; Wt 114.8 kg
[2020-03-05 17:09] VITALS: BP 143/98
== END 2020-03-05 17:53 | disposition home or self-care (01) ==
LOC: ED 16:59
DX: I83.899 Varicose veins of unspecified lower extremity with other complications (principal); Z88.2 Allergy status to sulfonamides; Z88.8 Allergy status to other drugs, medicaments and biological substances; Z79.899 Other long term (current) drug therapy; Z79.2 Long term (current) use of antibiotics

== ENCOUNTER 2020-06-11 09:36 | Emergency (ER) | payer OTHER, MEDICAID ==
[~2020-06-11] VITALS: Ht 175.2 cm; Wt 113.4 kg
[2020-06-11 09:42] VITALS: BP 157/81
[2020-06-11] MEDS ORDERED: DOXYCYCLINE100 M3 PO (10:08)
== END 2020-06-11 10:33 | disposition home or self-care (01) ==
LOC: ED 09:36
DX: L03.115 Cellulitis of right lower limb (principal); Z88.2 Allergy status to sulfonamides; Z88.8 Allergy status to other drugs, medicaments and biological substances; Z79.899 Other long term (current) drug therapy

== ENCOUNTER → 2020-06-28 | Outpatient (CLI) | payer OTHER, MEDICAID | END | disposition home or self-care (01) | LOC: US 14:19 | PROVIDERS: ATTEND Nurse Practitioner Gerontology | DX: I72.8 Aneurysm of other specified arteries (principal); T81.718A Complication of other artery following a procedure, not elsewhere classified, initial encounter; N94.89 Other specified conditions associated with female genital organs and menstrual cycle ==

== ENCOUNTER → 2020-07-06 | Outpatient (CLI) | payer OTHER, MEDICAID | END | disposition home or self-care (01) | LOC: CT 08:51 | PROVIDERS: ATTEND Nurse Practitioner Gerontology | DX: G89.18 Other acute postprocedural pain (principal) ==

== ENCOUNTER → 2020-08-24 | Outpatient (CLI) | payer OTHER, MEDICAID ==
[2020-08-24 08:53] LABS: BASO % 0.6 % (0.0-1.0); EOS # 0.2 10*3/uL (0.0-0.4); EOS % 2.6 % (1.0-4.0); HEMATOCRIT 38.7 % (37.0-47.0); LYMPH # 1.3 10*3/uL (1.3-4.4); LYMPH % 19.6 % (27.0-41.0); MEAN CORPUSCULAR HGB 30.3 pg (27.0-31.0); MEAN CORPUSCULAR HGB CONC 32.6 g/dl (33.0-37.0); MEAN PLATELET VOLUME 10.2 fl (9.6-12.3); MONO # 0.7 10*3/uL (0.1-1.0); MONO % 10.4 % (3.0-9.0); NEUT # 4.6 10*3/uL (2.3-7.9); NEUT % 66.4 % (47.0-73.0); PLATELET COUNT AUTOMATED 325 10*3/uL (130-400); RED BLOOD COUNT 4.16 10*6/uL (4.10-5.10); RED CELL DISTRI WIDTH 12.5 % (0-14.5); WHITE BLOOD COUNT 6.9 10*3/uL (4.8-10.8)
[2020-08-24 08:53] LABS: BILIRUBIN Negative (Negative); BLOOD Negative (Negative); CLARITY Clear (Clear); COLOR Yellow (Yellow); GLUCOSE Negative (Negative); KETONE Trace (Negative); LEUKO ESTERASE Negative (Negative); NITRITE Negative (Negative); SPECIFIC GRAVITY 1.025 (1.001-1.030); UROBILINOGEN 0.2 E.U./dl (0.0-1.0)
[2020-08-24 09:09] LABS: BACTERIA TRACE; MUCOUS 1+; RBC 0-2 rbc/hpf (0-2)
[2020-08-24 09:22] LABS: ALBUMIN 3.6 gm/dl (3.1-4.5); ALKALINE PHOSPHATASE 82 U/L (45-117); BUN 18 mg/dl (7-24); CHLORIDE 107 mmol/L (98-107); CHOLESTEROL 182 mg/dL (<200); HDL CHOLESTEROL 63 mg/dl (40-60); IRON 70 ug/dL (50-170); LDL CHOLESTEROL 94 mg/dL (9-159); POTASSIUM 3.5 mmol/L (3.5-5.1); SGOT/AST 13 IU/L (3-35); SGPT/ALT 18 U/L (12-78); SODIUM 141 mmol/L (136-145); TOTAL IRON BINDING CAPACITY 336 ug/dl (250-450); TRIGLYCERIDES 123 mg/dl (<150); URIC ACID 6.5 mg/dL (2.6-6.0); VLDL CHOLESTEROL 25 mg/dL (6-40)
[2020-08-24 10:09] LABS: FERRITIN 37.9 ng/mL (10.0-291.0); VITAMIN D, 25-HYDROXY 23.8 ng/mL (30-100)
[2020-08-24 10:10] LABS: PTH INTACT 53.1 pg/mL (18.5-88.0)
[2020-08-25 10:07] LABS: CREATININE,URINE 245.3 mg/dL (Not Estab.)
== END | disposition home or self-care (01) ==
LOC: LAB 08:17
PROVIDERS: ATTEND Registered Nurse
DX: I12.9 Hypertensive chronic kidney disease with stage 1 through stage 4 chronic kidney disease, or unspecified chronic kidney disease (principal); N18.2 Chronic kidney disease, stage 2 (mild); E83.51 Hypocalcemia; D64.9 Anemia, unspecified; N39.0 Urinary tract infection, site not specified; Z79.899 Other long term (current) drug therapy

== ENCOUNTER 2021-02-25 10:59 | Inpatient (IN) | payer OTHER, MEDICAID ==
[~2021-02-25] VITALS: Ht 175.2 cm; Wt 114.4 kg
[~2021-02-25 10:59] MED LIST changes: +DILTIAZEM 24HR360 MG PO; -Diltiazem180 MG PO
[2021-02-25 11:02] VITALS: BP 90/55
[2021-02-25 11:17] LABS: BASO # 0.1 10*3/uL (0.0-0.1); BASO % 0.4 % (0.0-1.0); EOS % 0.1 % (1.0-4.0); HEMATOCRIT 36.7 % (37.0-47.0); LYMPH % 7.6 % (27.0-41.0); MEAN CELL VOLUME 91.1 fl (81.0-99.0); MEAN CORPUSCULAR HGB 30.8 pg (27.0-31.0); MEAN CORPUSCULAR HGB CONC 33.8 g/dl (33.0-37.0); MEAN PLATELET VOLUME 10.2 fl (9.6-12.3); MONO % 7.7 % (3.0-9.0); NEUT # 11.2 10*3/uL (2.3-7.9); NEUT % 83.5 % (47.0-73.0); PLATELET COUNT AUTOMATED 231 10*3/uL (130-400); RED BLOOD COUNT 4.03 10*6/uL (4.10-5.10); RED CELL DISTRI WIDTH 11.9 % (0-14.5); WHITE BLOOD COUNT 13.4 10*3/uL (4.8-10.8)
[2021-02-25 11:34] LABS: ALBUMIN 3.1 gm/dl (3.1-4.5); ALKALINE PHOSPHATASE 82 U/L (45-117); BUN 33 mg/dl (7-24); CHLORIDE 100 mmol/L (98-107); CREATININE 2.68 mg/dL (0.55-1.02); POTASSIUM 2.8 mmol/L (3.5-5.1); SGOT/AST 28 IU/L (3-35); SGPT/ALT 22 U/L (12-78); SODIUM 135 mmol/L (136-145); TOTAL PROTEIN 7.6 gm/dL (6.4-8.2)
[2021-02-25 11:38] LABS: TROPONIN I < 0.015 ng/ml (<0.045)
[2021-02-25 12:00] VITALS: BP 80/55
[2021-02-25 15:02] VITALS: BP 110/52
[2021-02-25 20:00] VITALS: BP 99/66
[2021-02-25 22:22] VITALS: BP 125/78
[2021-02-25 23:48] VITALS: BP 80/55
[2021-02-26] VITALS (8 sets, daily range): BP systolic 90–133; BP diastolic 49–76
[2021-02-26 05:42] LABS: ALBUMIN 2.6 gm/dl (3.1-4.5); CREATININE 2.54 mg/dL (0.55-1.02); POTASSIUM 3.3 mmol/L (3.5-5.1)
[2021-02-26 05:47] LABS: FREE T4 1.12 ng/dl (0.76-1.46); THYROID STIM HORMONE (HS) 4.69 uIU/ml (0.358-4.75); TOTAL PROTEIN 6.4 gm/dL (6.4-8.2)
[2021-02-26 06:11] LABS: BASO % 0.4 % (0.0-1.0); EOS # 0.1 10*3/uL (0.0-0.4); EOS % 0.6 % (1.0-4.0); LYMPH % 8.6 % (27.0-41.0); MEAN CELL VOLUME 93.1 fl (81.0-99.0); MEAN CORPUSCULAR HGB 30.6 pg (27.0-31.0); MEAN CORPUSCULAR HGB CONC 32.9 g/dl (33.0-37.0); MONO # 1.4 10*3/uL (0.1-1.0); MONO % 12.9 % (3.0-9.0); NEUT # 8.5 10*3/uL (2.3-7.9); NEUT % 76.8 % (47.0-73.0); PLATELET COUNT AUTOMATED 185 10*3/uL (130-400); RED BLOOD COUNT 3.33 10*6/uL (4.10-5.10); RED CELL DISTRI WIDTH 12.3 % (0-14.5)
[2021-02-26 08:35] LABS: BILIRUBIN Negative (Negative); BLOOD 1+ (Negative); CLARITY Turbid (Clear); COLOR Yellow (Yellow); GLUCOSE Negative (Negative); KETONE Trace (Negative); LEUKO ESTERASE 2+ (Negative); NITRITE Negative (Negative); UROBILINOGEN 0.2 E.U./dl (0.0-1.0)
[2021-02-26 08:48] LABS: WBC TNTC wbc/hpf (0-5)
[2021-02-26 09:08] LABS: BACTERIA 4+
[2021-02-26 09:12] LABS: EPITHELIAL CELLS 0-2; RBC 0-2 rbc/hpf (0-2)
[2021-02-27] VITALS: BP 112/68
[2021-02-27 06:21] LABS: BASO % 0.4 % (0.0-1.0); EOS # 0.1 10*3/uL (0.0-0.4); EOS % 1.3 % (1.0-4.0); HEMATOCRIT 29.8 % (37.0-47.0); LYMPH % 13.8 % (27.0-41.0); MEAN CELL VOLUME 93.1 fl (81.0-99.0); MEAN CORPUSCULAR HGB 30.6 pg (27.0-31.0); MEAN CORPUSCULAR HGB CONC 32.9 g/dl (33.0-37.0); MONO # 0.9 10*3/uL (0.1-1.0); MONO % 11.5 % (3.0-9.0); NEUT # 5.4 10*3/uL (2.3-7.9); NEUT % 72.3 % (47.0-73.0); PLATELET COUNT AUTOMATED 188 10*3/uL (130-400); RED CELL DISTRI WIDTH 12.4 % (0-14.5); WHITE BLOOD COUNT 7.5 10*3/uL (4.8-10.8)
[2021-02-27 06:34] LABS: CREATININE 1.63 mg/dL (0.55-1.02); POTASSIUM 3.4 mmol/L (3.5-5.1)
[2021-02-27 08:00] VITALS: BP 125/81
[2021-02-27] MEDS ORDERED: ALDACTONE25 M1 PO (11:04)
[2021-02-27] MEDS ORDERED: TUMS200 MG PO (11:50)
[2021-02-27 12:00] VITALS: BP 125/73
[2021-02-27 16:00] VITALS: BP 118/61
[2021-02-27 20:00] VITALS: BP 118/59
[2021-02-28] VITALS: BP 129/80
[2021-02-28 06:16] LABS: BASO % 0.1 % (0.0-1.0); HEMATOCRIT 31.4 % (37.0-47.0); LYMPH # 0.8 10*3/uL (1.3-4.4); LYMPH % 11.3 % (27.0-41.0); MEAN CELL VOLUME 91.3 fl (81.0-99.0); MEAN CORPUSCULAR HGB 30.5 pg (27.0-31.0); MEAN CORPUSCULAR HGB CONC 33.4 g/dl (33.0-37.0); MEAN PLATELET VOLUME 11.1 fl (9.6-12.3); MONO # 0.3 10*3/uL (0.1-1.0); MONO % 3.7 % (3.0-9.0); NEUT # 5.6 10*3/uL (2.3-7.9); PLATELET COUNT AUTOMATED 228 10*3/uL (130-400); RED BLOOD COUNT 3.44 10*6/uL (4.10-5.10); RED CELL DISTRI WIDTH 11.9 % (0-14.5); WHITE BLOOD COUNT 6.7 10*3/uL (4.8-10.8)
[2021-02-28 06:30] LABS: ALBUMIN 2.6 gm/dl (3.1-4.5); ALKALINE PHOSPHATASE 90 U/L (45-117); CHLORIDE 103 mmol/L (98-107); CREATININE 1.01 mg/dL (0.55-1.02); POTASSIUM 3.3 mmol/L (3.5-5.1); SGOT/AST 38 IU/L (3-35); SGPT/ALT 38 U/L (12-78); SODIUM 136 mmol/L (136-145); TOTAL PROTEIN 6.9 gm/dL (6.4-8.2)
[2021-02-28 06:33] LABS: BUN 18 mg/dl (7-24)
[2021-02-28 08:00] VITALS: BP 122/68
[2021-02-28 12:00] VITALS: BP 127/78
[2021-02-28 16:00] VITALS: BP 117/73
[2021-02-28 20:00] VITALS: BP 118/66
[2021-03-01] VITALS: BP 123/77
[2021-03-01 07:24] LABS: HEMATOCRIT 33.4 % (37.0-47.0); MEAN CELL VOLUME 89.5 fl (81.0-99.0); MEAN CORPUSCULAR HGB 30.3 pg (27.0-31.0); MEAN CORPUSCULAR HGB CONC 33.8 g/dl (33.0-37.0); MEAN PLATELET VOLUME 10.4 fl (9.6-12.3); RED BLOOD COUNT 3.73 10*6/uL (4.10-5.10); RED CELL DISTRI WIDTH 12.3 % (0-14.5); WHITE BLOOD COUNT 13.7 10*3/uL (4.8-10.8)
[2021-03-01 07:30] LABS: PLATELET COUNT AUTOMATED 359 10*3/uL (130-400)
[2021-03-01 07:32] LABS: ALBUMIN 2.9 gm/dl (3.1-4.5); ALKALINE PHOSPHATASE 98 U/L (45-117); BUN 21 mg/dl (7-24); CHLORIDE 105 mmol/L (98-107); CREATININE 1.04 mg/dL (0.55-1.02); POTASSIUM 3.4 mmol/L (3.5-5.1); SGOT/AST 30 IU/L (3-35); SGPT/ALT 42 U/L (12-78); SODIUM 136 mmol/L (136-145); TOTAL PROTEIN 7.2 gm/dL (6.4-8.2)
[2021-03-01 07:49] LABS: BASOPHILS 1 % (0-1); PLATELET SUFFICIENCY NORMAL (NORMAL); TOTAL CELLS COUNTED 100 #CELLS
[2021-03-01 08:00] VITALS: BP 141/85
[2021-03-01] MEDS ORDERED: DOXYCYCLINE100 M3 PO (11:36)
[2021-03-01] MEDS ORDERED: OYSTER SHELL 51 EAC2 PO (11:36)
[2021-03-01] MEDS ORDERED: DEBROX15 ML OT (11:36)
[2021-03-01] MEDS ORDERED: DOXYCYCLINE MO100 M1 PO (11:36)
[2021-03-01] MEDS ORDERED: Rocaltrol0.25 MCG PO (11:36)
[2021-03-01] MEDS ORDERED: PREDNISONE10 MG PO (11:36)
[2021-03-01] MEDS ORDERED: ZESTRIL10 MG PO (11:36)
[2021-03-01] MEDS ORDERED: K-TAB20 MEQ PO (11:38)
== END 2021-03-01 13:30 | disposition home or self-care (01) | DRG 682 ==
LOC: ED 10:59 → EDHOLD 11:58 → 5E 11:58 → EDHOLD 02-26 17:40 → 5E 02-26 17:40
PROVIDERS: Family Medicine; Internal Medicine; Student in an Organized Health Care Education/Training Program; ADMIT Emergency Medicine; ATTEND Emergency Medicine
DX: N17.0 Acute kidney failure with tubular necrosis (principal); R65.11 Systemic inflammatory response syndrome (SIRS) of non-infectious origin with acute organ dysfunction; E44.0 Moderate protein-calorie malnutrition; D68.59 Other primary thrombophilia; J44.0 Chronic obstructive pulmonary disease with (acute) lower respiratory infection; E87.1 Hypo-osmolality and hyponatremia; E87.6 Hypokalemia; N12 Tubulo-interstitial nephritis, not specified as acute or chronic; I12.9 Hypertensive chronic kidney disease with stage 1 through stage 4 chronic kidney disease, or unspecified chronic kidney disease; D72.810 Lymphocytopenia; N18.30 Chronic kidney disease, stage 3 unspecified; K21.9 Gastro-esophageal reflux disease without esophagitis; F32.9 Major depressive disorder, single episode, unspecified; M19.90 Unspecified osteoarthritis, unspecified site; Z96.649 Presence of unspecified artificial hip joint; E89.0 Postprocedural hypothyroidism; E86.0 Dehydration; J20.9 Acute bronchitis, unspecified; E20.9 Hypoparathyroidism, unspecified; I48.0 Paroxysmal atrial fibrillation; E66.9 Obesity, unspecified; F41.1 Generalized anxiety disorder; E55.9 Vitamin D deficiency, unspecified; Z68.38 Body mass index [BMI] 38.0-38.9, adult; Z88.2 Allergy status to sulfonamides; Z88.8 Allergy status to other drugs, medicaments and biological substances; Z98.891 History of uterine scar from previous surgery; Z83.3 Family history of diabetes mellitus; Z82.49 Family history of ischemic heart disease and other diseases of the circulatory system; Z80.1 Family history of malignant neoplasm of trachea, bronchus and lung; Z79.899 Other long term (current) drug therapy; Z68.37 Body mass index [BMI] 37.0-37.9, adult

== ENCOUNTER → 2021-09-25 | Outpatient (CLI) | payer OTHER, MEDICAID ==
[~2021-09-25] MED LIST changes: +ALDACTONE25 M1 PO; +CARAFATE1 G1 PO; +CYMBALTA30 MG PO; +DEBROX15 ML OT; +DOXYCYCLINE MO100 M1 PO; +K-TAB20 MEQ PO; +OYSTER SHELL 51 EAC2 PO; +SEROQUEL50 MG PO; +SYMB160 INH; +TUMS200 MG PO; +ZESTRIL10 MG PO
== END | disposition home or self-care (01) ==
LOC: CARD 00:12
PROVIDERS: ATTEND Internal Medicine Clinical Cardiac Electrophysiology
DX: R07.89 Other chest pain (principal); R06.00 Dyspnea, unspecified

== ENCOUNTER → 2021-09-29 | Outpatient (CLI) | payer OTHER, MEDICAID | END | disposition home or self-care (01) | LOC: CARD 00:20 | PROVIDERS: ATTEND Internal Medicine Clinical Cardiac Electrophysiology | DX: R07.89 Other chest pain (principal); R06.00 Dyspnea, unspecified; R94.31 Abnormal electrocardiogram [ECG] [EKG]; I10 Essential (primary) hypertension; I48.91 Unspecified atrial fibrillation ==

== ENCOUNTER → 2022-05-25 | Outpatient (CLI) | payer OTHER, MEDICAID | END | disposition home or self-care (01) | LOC: RAD 13:00 | PROVIDERS: ATTEND Physician Assistant | DX: M16.12 Unilateral primary osteoarthritis, left hip (principal); M25.752 Osteophyte, left hip; Z96.642 Presence of left artificial hip joint ==

== ENCOUNTER → 2022-06-13 | Outpatient (CLI) | payer OTHER, MEDICAID | END | disposition home or self-care (01) | LOC: MAMMO 14:00 | PROVIDERS: ATTEND Physician Assistant | DX: Z12.31 Encounter for screening mammogram for malignant neoplasm of breast (principal) ==

== ENCOUNTER → 2022-07-25 | Outpatient (CLI) | payer OTHER, MEDICAID ==
[~2022-07-25] MED LIST changes: +CALCIUM CARBON200 MG PO; +KLOR-CON M2020 ME1 PO; +MACROBID100 M1 PO; +MAGNESIUM OXID400 MG PO; +OXYBUTYNIN CHLOR5 M1 PO; +PREDNISONE5 MG PO; +PROVENTIL HFA6.7 GM INH; +Synthroid,Lev150 MCG PO; +Synthroid,Levo25 MCG PO; +VITAMIN D350 MC2 PO
[2022-07-25 10:59] LABS: ALKALINE PHOSPHATASE 64 U/L (46-116); BUN 18 mg/dl (9-23); CHLORIDE 100 mmol/L (98-107); POTASSIUM 4.6 mmol/L (3.4-5.1); SGPT/ALT 16 U/L (10-49); TOTAL PROTEIN 6.9 gm/dL (6.0-8.0)
== END | disposition home or self-care (01) ==
LOC: LAB 10:24
PROVIDERS: ATTEND Internal Medicine
DX: E87.6 Hypokalemia (principal); E83.42 Hypomagnesemia; E83.51 Hypocalcemia

== ENCOUNTER → 2023-06-28 | Outpatient (CLI) | payer OTHER, MEDICAID ==
[2023-06-28 11:41] LABS: FREE T4 0.95 ng/dl (0.89-1.76)
== END | disposition home or self-care (01) ==
LOC: LAB 10:55
PROVIDERS: ATTEND Internal Medicine
DX: E83.51 Hypocalcemia (principal); E55.9 Vitamin D deficiency, unspecified; E83.42 Hypomagnesemia; E89.0 Postprocedural hypothyroidism

== ENCOUNTER → 2023-10-25 | Outpatient (CLI) | payer OTHER, MEDICAID ==
[2023-10-25 10:41] LABS: BASO % 0.6 % (0.0-1.0); BILIRUBIN Negative (Negative); BLOOD Negative (Negative); CLARITY Clear (Clear); COLOR Yellow (Yellow); EOS # 0.3 10*3/uL (0.0-0.4); EOS % 4.3 % (1.0-4.0); GLUCOSE Negative (Negative); HEMATOCRIT 39.7 % (37.0-47.0); KETONE Negative (Negative); LEUKO ESTERASE Trace (Negative); LYMPH # 1.7 10*3/uL (1.3-4.4); LYMPH % 26.6 % (27.0-41.0); MEAN CORPUSCULAR HGB CONC 32.2 g/dl (33.0-37.0); MEAN PLATELET VOLUME 9.9 fl (9.6-12.3); MONO # 0.6 10*3/uL (0.1-1.0); MONO % 9.5 % (3.0-9.0); NEUT # 3.7 10*3/uL (2.3-7.9); NEUT % 58.7 % (47.0-73.0); NITRITE Negative (Negative); PH 6.5 (4.5-8.0); PLATELET COUNT AUTOMATED 345 10*3/uL (130-400); RED BLOOD COUNT 4.41 10*6/uL (4.10-5.10); RED CELL DISTRI WIDTH 12.8 % (0-14.5); UROBILINOGEN 0.2 E.U./dl (0.0-1.0); WHITE BLOOD COUNT 6.3 10*3/uL (4.8-10.8)
[2023-10-25 10:52] LABS: ACT PARTIAL THROMBO TIME 30.8 SECONDS (20.0-32.1)
[2023-10-25 11:11] LABS: ALKALINE PHOSPHATASE 67 U/L (46-116); BUN 18 mg/dl (9-23); CHLORIDE 105 mmol/L (98-107); SGPT/ALT 13 U/L (5-49); TOTAL PROTEIN 7.3 gm/dL (6.0-8.0)
[2023-10-25 11:12] LABS: FREE T4 1.81 ng/dl (0.89-1.76)
[2023-10-25 11:23] LABS: BACTERIA TRACE
== END | disposition home or self-care (01) ==
LOC: LAB 10:03
PROVIDERS: Orthopaedic Surgery; ATTEND Internal Medicine
DX: Z01.818 Encounter for other preprocedural examination (principal); E55.9 Vitamin D deficiency, unspecified; E89.0 Postprocedural hypothyroidism; M16.11 Unilateral primary osteoarthritis, right hip; J44.9 Chronic obstructive pulmonary disease, unspecified; I25.2 Old myocardial infarction; I51.7 Cardiomegaly; I49.1 Atrial premature depolarization; I44.0 Atrioventricular block, first degree

== ENCOUNTER 2024-04-25 12:41 | Emergency (ER) | payer OTHER, MEDICAID ==
[~2024-04-25] VITALS: Ht 175.2 cm; Wt 104.3 kg
[~2024-04-25 12:41] MED LIST changes: +Ipratropium Brom3 ML INH; +MUCUS RELIEF600 MG PO
[2024-04-25 12:56] VITALS: BP 138/87
[2024-04-25] MEDS ORDERED: LORazepam 2 MG/ML VIAL IV ONE (13:15)
[2024-04-25 13:29] LABS: BASO % 0.1 % (0.0-1.0); EOS # 0.1 10*3/uL (0.0-0.4); EOS % 0.6 % (1.0-4.0); HEMATOCRIT 34.5 % (37.0-47.0); LYMPH # 2.1 10*3/uL (1.3-4.4); LYMPH % 16.3 % (27.0-41.0); MEAN CELL VOLUME 86.3 fl (81.0-99.0); MEAN CORPUSCULAR HGB CONC 31.3 g/dl (33.0-37.0); MEAN PLATELET VOLUME 9.3 fl (9.6-12.3); MONO # 1.3 10*3/uL (0.1-1.0); NEUT # 9.1 10*3/uL (2.3-7.9); NEUT % 72.4 % (47.0-73.0); PLATELET COUNT AUTOMATED 312 10*3/uL (130-400); RED CELL DISTRI WIDTH 15.2 % (0-14.5); WHITE BLOOD COUNT 12.6 10*3/uL (4.8-10.8)
[2024-04-25 14:54] LABS: BUN 15 mg/dl (9-23); CHLORIDE 105 mmol/L (98-107); POTASSIUM 3.6 mmol/L (3.4-5.1)
[2024-04-25] MEDS ORDERED: CALCIUM GLUCONATE 1 GM/10 ML VIAL IV ONE (15:40)
[2024-04-25] MEDS ORDERED: TRIAMCINOLONE430 GM TD (15:51)
[2024-04-25] MEDS ORDERED: CALCIUM500 M1 PO (15:51)
== END 2024-04-25 16:01 | disposition home or self-care (01) ==
LOC: ED 12:41
PROVIDERS: Emergency Medicine
DX: R07.89 Other chest pain (principal); R20.0 Anesthesia of skin; R21 Rash and other nonspecific skin eruption; E83.51 Hypocalcemia; J44.9 Chronic obstructive pulmonary disease, unspecified; F32.A Depression, unspecified; F41.9 Anxiety disorder, unspecified; I48.91 Unspecified atrial fibrillation; Z88.2 Allergy status to sulfonamides; Z88.8 Allergy status to other drugs, medicaments and biological substances; Z98.890 Other specified postprocedural states

== ENCOUNTER → 2024-05-19 | Outpatient (CLI) | payer OTHER, MEDICAID ==
[~2024-05-19] MED LIST changes: +CALCIUM500 M1 PO; +TRIAMCINOLONE430 GM TD
[2024-05-19 10:37] LABS: ALKALINE PHOSPHATASE 97 U/L (46-116); BUN 18 mg/dl (9-23); CHLORIDE 106 mmol/L (98-107); POTASSIUM 4.1 mmol/L (3.4-5.1); SGPT/ALT 11 U/L (5-49); TOTAL PROTEIN 6.8 gm/dL (6.0-8.0)
== END | disposition home or self-care (01) ==
LOC: LAB 09:37
PROVIDERS: ATTEND Internal Medicine
DX: J18.9 Pneumonia, unspecified organism (principal); E83.51 Hypocalcemia

== ENCOUNTER 2024-06-01 09:30 | Emergency (ER) | payer OTHER, MEDICAID ==
[~2024-06-01] VITALS: Ht 175.2 cm; Wt 102.1 kg
[2024-06-01 09:47] VITALS: BP 145/73
[2024-06-01] MEDS ORDERED: PREDNISONE20 M1 PO (11:23)
[2024-06-01] MEDS ORDERED: DEXAMETHASONE 4 MG TAB PO ONE (11:25)
== END 2024-06-01 11:54 | disposition home or self-care (01) ==
LOC: ED 09:30
DX: M25.462 Effusion, left knee (principal); I10 Essential (primary) hypertension; J45.909 Unspecified asthma, uncomplicated; F41.9 Anxiety disorder, unspecified; F32.A Depression, unspecified; M19.90 Unspecified osteoarthritis, unspecified site; E03.9 Hypothyroidism, unspecified; I48.91 Unspecified atrial fibrillation; E87.6 Hypokalemia; E83.51 Hypocalcemia; Z88.2 Allergy status to sulfonamides; Z88.8 Allergy status to other drugs, medicaments and biological substances; Z98.890 Other specified postprocedural states

== ENCOUNTER 2024-08-11 13:31 | Emergency (ER) | payer OTHER, MEDICAID ==
[~2024-08-11] VITALS: Ht 165.1 cm; Wt 106.6 kg
[~2024-08-11 13:31] MED LIST changes: +PREDNISONE20 M1 PO
[2024-08-11 13:39] VITALS: BP 155/81
[2024-08-11] MEDS ORDERED: Acetaminophen/Oxycodone 5 MG/325 MG TABLET PO ONE (15:05)
== END 2024-08-11 15:42 | disposition home or self-care (01) ==
LOC: ED 13:31
DX: S52.121A Displaced fracture of head of right radius, initial encounter for closed fracture (principal); S09.90XA Unspecified injury of head, initial encounter; M25.551 Pain in right hip; J44.9 Chronic obstructive pulmonary disease, unspecified; I48.91 Unspecified atrial fibrillation; M19.90 Unspecified osteoarthritis, unspecified site; K21.9 Gastro-esophageal reflux disease without esophagitis; I10 Essential (primary) hypertension; E66.9 Obesity, unspecified; Z68.30 Body mass index [BMI] 30.0-30.9, adult; Z88.2 Allergy status to sulfonamides; Z88.8 Allergy status to other drugs, medicaments and biological substances; Z79.899 Other long term (current) drug therapy; Z98.890 Other specified postprocedural states; Z96.649 Presence of unspecified artificial hip joint; Z90.89 Acquired absence of other organs; Z90.710 Acquired absence of both cervix and uterus; W01.198A Fall on same level from slipping, tripping and stumbling with subsequent striking against other object, initial encounter; Y93.89 Activity, other specified; Y92.89 Other specified places as the place of occurrence of the external cause; Y99.8 Other external cause status

== ENCOUNTER → 2024-08-19 | Outpatient (CLI) | payer OTHER, MEDICAID | END | disposition home or self-care (01) | LOC: ORTHO 01:48 | PROVIDERS: ATTEND Orthopaedic Surgery | DX: S52.124D Nondisplaced fracture of head of right radius, subsequent encounter for closed fracture with routine healing (principal); M79.89 Other specified soft tissue disorders; X58.XXXD Exposure to other specified factors, subsequent encounter ==

== ENCOUNTER → 2024-08-27 | Outpatient (CLI) | payer OTHER, MEDICAID ==
[~2024-08-27] MED LIST changes: +CITALOPRAM20 MG PO; +GABAPENTIN400 MG PO; +HYDROCOD-HOMAT1 EACH PO; +LEVOTHYROXINE200 MC3 PO; +LEVOTHYROXINE25 MCG PO; +NYSTATIN1000000 UN MC; -OXYBUTYNIN CHLOR5 M1 PO; +OXYBUTYNIN ER15 MG PO; +Regadenoson 0.4 MG/5 ML SYR IV ONE
== END | disposition home or self-care (01) ==
LOC: CARD 01:20
PROVIDERS: ATTEND Internal Medicine Cardiovascular Disease
DX: R06.02 Shortness of breath (principal); R06.09 Other forms of dyspnea

== ENCOUNTER → 2024-09-02 | Outpatient (CLI) | payer OTHER, MEDICAID ==
[~2024-09-02] MED LIST changes: -Regadenoson 0.4 MG/5 ML SYR IV ONE
== END | disposition home or self-care (01) ==
LOC: ORTHO 01:43
PROVIDERS: ATTEND Orthopaedic Surgery
DX: S52.124D Nondisplaced fracture of head of right radius, subsequent encounter for closed fracture with routine healing (principal); M79.89 Other specified soft tissue disorders; X58.XXXD Exposure to other specified factors, subsequent encounter

== ENCOUNTER → 2024-09-23 | Outpatient (CLI) | payer OTHER, MEDICAID | END | disposition home or self-care (01) | LOC: ORTHO 03:42 | PROVIDERS: ATTEND Orthopaedic Surgery | DX: S52.124D Nondisplaced fracture of head of right radius, subsequent encounter for closed fracture with routine healing (principal); X58.XXXD Exposure to other specified factors, subsequent encounter ==

== ENCOUNTER → 2024-10-28 | Outpatient (CLI) | payer OTHER, MEDICAID | END | disposition home or self-care (01) | LOC: ORTHO 01:07 | PROVIDERS: ATTEND Orthopaedic Surgery | DX: S52.124D Nondisplaced fracture of head of right radius, subsequent encounter for closed fracture with routine healing (principal); X58.XXXD Exposure to other specified factors, subsequent encounter ==

== ENCOUNTER 2024-11-23 16:01 | Emergency (ER) | payer OTHER, MEDICAID ==
[~2024-11-23] VITALS: Ht 175.2 cm; Wt 104.3 kg
[2024-11-23 17:26] LABS: BASO % 0.5 % (0.0-1.0); EOS # 0.1 10*3/uL (0.0-0.4); EOS % 1.4 % (1.0-4.0); HEMATOCRIT 38.2 % (37.0-47.0); MEAN CELL VOLUME 89.5 fl (81.0-99.0); MEAN CORPUSCULAR HGB 28.8 pg (27.0-31.0); MEAN CORPUSCULAR HGB CONC 32.2 g/dl (33.0-37.0); MEAN PLATELET VOLUME 9.6 fl (9.6-12.3); MONO # 0.8 10*3/uL (0.1-1.0); NEUT # 4.6 10*3/uL (2.3-7.9); NEUT % 63.2 % (47.0-73.0); PLATELET COUNT AUTOMATED 329 10*3/uL (130-400); RED BLOOD COUNT 4.27 10*6/uL (4.10-5.10); RED CELL DISTRI WIDTH 13.8 % (0-14.5); WHITE BLOOD COUNT 7.3 10*3/uL (4.8-10.8)
[2024-11-23 17:37] LABS: ACT PARTIAL THROMBO TIME 26.1 SECONDS (20.0-32.1)
[2024-11-23 17:47] LABS: ALKALINE PHOSPHATASE 75 U/L (46-116); BUN 20 mg/dl (9-23); CHLORIDE 103 mmol/L (98-107); POTASSIUM 4.2 mmol/L (3.4-5.1); SGPT/ALT 12 U/L (5-49); TOTAL PROTEIN 6.7 gm/dL (6.0-8.0)
[2024-11-23 18:29] VITALS: BP 171/85
== END 2024-11-23 18:32 | disposition home or self-care (01) ==
LOC: ED 16:01
PROVIDERS: Internal Medicine
DX: I10 Essential (primary) hypertension (principal); R07.89 Other chest pain; R42 Dizziness and giddiness; J44.9 Chronic obstructive pulmonary disease, unspecified; Z88.2 Allergy status to sulfonamides; Z88.8 Allergy status to other drugs, medicaments and biological substances; Z79.899 Other long term (current) drug therapy; Z98.890 Other specified postprocedural states; Z96.649 Presence of unspecified artificial hip joint

== ENCOUNTER → 2024-12-16 | Outpatient (CLI) | payer OTHER, MEDICAID | END | disposition home or self-care (01) | LOC: ORTHO 00:58 | PROVIDERS: ATTEND Orthopaedic Surgery | DX: S52.124D Nondisplaced fracture of head of right radius, subsequent encounter for closed fracture with routine healing (principal); X58.XXXD Exposure to other specified factors, subsequent encounter ==

== ENCOUNTER 2025-01-10 14:31 | Emergency (ER) | payer OTHER, MEDICAID ==
[~2025-01-10] VITALS: Ht 175.2 cm; Wt 105.7 kg
[~2025-01-10 14:31] MED LIST changes: +ASPIRIN ADULT L81 M2 PO; +ATORVASTATIN CA40 M1 PO
[2025-01-10 14:36] VITALS: BP 157/69
[2025-01-10 15:02] LABS: BASO % 0.3 % (0.0-1.0); EOS # 0.1 10*3/uL (0.0-0.4); EOS % 1.1 % (1.0-4.0); HEMATOCRIT 36.1 % (37.0-47.0); MEAN CELL VOLUME 88.9 fl (81.0-99.0); MEAN CORPUSCULAR HGB 29.3 pg (27.0-31.0); MEAN PLATELET VOLUME 9.5 fl (9.6-12.3); MONO # 0.6 10*3/uL (0.1-1.0); NEUT # 4.1 10*3/uL (2.3-7.9); NEUT % 67.3 % (47.0-73.0); PLATELET COUNT AUTOMATED 281 10*3/uL (130-400); RED BLOOD COUNT 4.06 10*6/uL (4.10-5.10); RED CELL DISTRI WIDTH 12.4 % (0-14.5); WHITE BLOOD COUNT 6.1 10*3/uL (4.8-10.8)
[2025-01-10 15:16] LABS: ACT PARTIAL THROMBO TIME 29.4 SECONDS (20.0-32.1)
[2025-01-10 15:26] LABS: BUN 14 mg/dl (9-23); CHLORIDE 104 mmol/L (98-107); POTASSIUM 3.8 mmol/L (3.4-5.1)
== END 2025-01-10 16:05 | disposition home or self-care (01) ==
LOC: ED 14:31
PROVIDERS: Internal Medicine
DX: I10 Essential (primary) hypertension (principal); F41.9 Anxiety disorder, unspecified; Z88.2 Allergy status to sulfonamides; Z88.8 Allergy status to other drugs, medicaments and biological substances; Z79.899 Other long term (current) drug therapy; Z79.82 Long term (current) use of aspirin; Z98.890 Other specified postprocedural states

== ENCOUNTER 2025-01-30 16:48 | Emergency (ER) | payer OTHER, MEDICAID ==
[~2025-01-30] VITALS: Ht 175.2 cm; Wt 104.3 kg
[2025-01-30 18:39] LABS: BASO # 0.0 10*3/uL (0.0-0.1); BASO % 0.7 % (0.0-1.0); EOS # 0.1 10*3/uL (0.0-0.4); EOS % 1.8 % (1.0-4.0); MEAN CELL VOLUME 91.3 fl (81.0-99.0); MEAN CORPUSCULAR HGB 29.7 pg (27.0-31.0); MEAN PLATELET VOLUME 9.6 fl (9.6-12.3); MONO # 0.7 10*3/uL (0.1-1.0); MONO % 12.6 % (3.0-9.0); NEUT # 3.3 10*3/uL (2.3-7.9); NEUT % 57.7 % (47.0-73.0); NUCLEATED RED BLOOD CELL 0.0 % (0.0-0.0); NUCLEATED RED BLOOD CELL 0.0 10*3/uL (0.0-0.0); PLATELET COUNT AUTOMATED 290 10*3/uL (130-400); RED CELL DISTRI WIDTH 13.0 % (0-14.5)
[2025-01-30 19:01] LABS: BUN 20 mg/dl (9-23)
[2025-01-30] MEDS ORDERED: BUMETANIDE 1 MG/4 ML VIAL IV ONE (19:45)
[2025-01-30 20:20] VITALS: BP 151/78
== END 2025-01-30 21:00 | disposition home or self-care (01) ==
LOC: ED 16:48
PROVIDERS: Internal Medicine
DX: I11.0 Hypertensive heart disease with heart failure (principal); I50.9 Heart failure, unspecified; I48.91 Unspecified atrial fibrillation; J44.9 Chronic obstructive pulmonary disease, unspecified; Z88.2 Allergy status to sulfonamides; Z88.8 Allergy status to other drugs, medicaments and biological substances; Z79.899 Other long term (current) drug therapy; Z79.82 Long term (current) use of aspirin; Z98.890 Other specified postprocedural states; Z96.649 Presence of unspecified artificial hip joint; Z90.89 Acquired absence of other organs

== ENCOUNTER → 2025-04-16 | Outpatient (CLI) | payer OTHER, MEDICAID ==
[~2025-04-16] MED LIST changes: +DULOXETINE HCL30 MG PO; +FUROSEMIDE20 M1 PO; +GEMTESA75 MG PO; +TRELEGY ELLIPT1 EACH INH
[2025-04-16 10:00] LABS: BUN 21 mg/dl (9-23)
== END | disposition home or self-care (01) ==
LOC: LAB 09:02
PROVIDERS: ATTEND Orthopaedic Surgery
DX: I51.7 Cardiomegaly (principal); G56.23 Lesion of ulnar nerve, bilateral upper limbs

== ENCOUNTER → 2025-04-20 | Day surgery (SDC) | payer OTHER, MEDICAID ==
[~2025-04-20] VITALS: Ht 170.1 cm; Wt 10433.0 kg
[~2025-04-20] MED LIST changes: +ACETAMINOPHEN 100 ML IV ONE; +Dexamethasone Sodium Phospha 4 MG/ML VIAL IV ONE; +HYDROCODONE-AC1 EAC1 PO; +Lactated Ringer's Solution 1,000 ML IV ONE; +Lidocaine Hydrochloride 30 ML VIAL ONE; +Midazolam Hydrochloride 2 MG/2 ML VIAL IV ONE; +Ondansetron Hydrochloride 4 MG/2 ML VIAL IV ONE; +PROPOFOL 200 MG/20 ML VIAL IV ONE; +ROCURONIUM BROMIDE 50 MG/5 ML SYRINGE IV ONE; +Ropivacaine Hydrochloride 5 MG/ML 20 ML AMP IJ ONE; +SEVOFLURANE 250 ML BOT INH ONE; +ceFAZolin sodium/sodium chlor 20 ML IV ONE
[2025-04-20 06:54] VITALS: BP 149/73
[2025-04-20 09:22] VITALS: BP 147/76
[2025-04-20 09:37] VITALS: BP 152/78
[2025-04-20 09:52] VITALS: BP 156/75
[2025-04-20 10:22] VITALS: BP 155/83
== END | disposition home or self-care (01) ==
LOC: SDC 04-19 08:45
PROVIDERS: ATTEND Orthopaedic Surgery
DX: G56.22 Lesion of ulnar nerve, left upper limb (principal); I10 Essential (primary) hypertension; F32.A Depression, unspecified; E03.9 Hypothyroidism, unspecified; E78.00 Pure hypercholesterolemia, unspecified; F41.9 Anxiety disorder, unspecified; K21.9 Gastro-esophageal reflux disease without esophagitis; I48.91 Unspecified atrial fibrillation; J44.9 Chronic obstructive pulmonary disease, unspecified; E72.51 Non-ketotic hyperglycinemia; Z98.890 Other specified postprocedural states; Z79.899 Other long term (current) drug therapy; Z88.2 Allergy status to sulfonamides; Z88.8 Allergy status to other drugs, medicaments and biological substances